=== PATIENT | female | born 1985 | race Caucasian/White ===

== ENCOUNTER → 2020-07-12 02:18 | Outpatient (CLI) | payer OTHER, SELFPAY ==
[2020-07-12 20:23] LABS: SARS-CoV-2 RNA PCR Negative
== END ==
PROVIDERS: PCP Internal Medicine; Visit Provider Internal Medicine Gastroenterology
DX: Z01.812 Encounter for preprocedural laboratory examination (principal); Z20.822 Contact with and (suspected) exposure to COVID-19
CPT/HCPCS: C9803; U0003; U0005

== ENCOUNTER 2020-07-15 01:36 | Day surgery (SDC) | payer OTHER, SELFPAY ==
[2020-07-01 11:17] VITALS: BMI 26.9
[2020-07-15 10:32] VITALS: BP 124/87; PULSE 85; RESP 16; TEMP 36.1; O2SAT 99
[2020-07-15] MEDS: LACTATED RINGERS 1,000 ML 150 ML IV CONT (10:37)
--- NOTE | 2020-07-15 11:24 | WPDANESEPPF ---
Anes - Initial Pre Proc Eval Procedure: Operation Date: 07/15/20 11:30 Proposed Procedures p Colonoscopy - Pranay Doe MD Date/Time: 07/15/20 11:24 Surgeon: Pranay Doe MD Pre Op Diagnosis: melena, constipation Patient Data Age: 34 Gender: F Height: 5 ft 4 in Weight: 69 kg Last Vital Signs Temp 36.1 C L 07/15/20 10:32 Pulse 85 07/15/20 10:32 Resp 16 07/15/20 10:32 BP 124/87 07/15/20 10:32 Pulse Ox 99 07/15/20 10:32 Allergies Allergy/AdvReac Type Severity Reaction Status Date / Time No Known Allergies Allergy Verified 07/15/20 10:29 Home Medications Medication Instructions Recorded Confirmed Type baclofen 10 mg tablet 10 mg PO DAILY 02/15/20 07/01/20 History duloxetine 20 mg capsule,delayed 60 mg PO DAILY cap 02/15/20 07/01/20 History release nortriptyline 10 mg capsule 10 mg PO BID 02/15/20 07/01/20 History verapamil 180 mg tablet,extended 180 mg PO DAILY 02/15/20 07/01/20 History release Patient hx anesthesia problems: none Family hx anesthesia problems: none PMFSH Past Medical History Medical History Anxiety Blood in stool Fibromyalgia Social History Social History Years smoked: 20 Smoking status: Current every day smoker Tobacco type: cigarettes Alcohol intake: current Drinks per week: 7 Substance use type: marijuana Other substance usage details: nightly for sleep Last use: 1 day ago Living arrangements: with family Gender identity (if verbalized by the patient): Female Spiritual care concerns: No Anes - Eval Final PreProcedure Day of Procedure 07/15/20 11:24 Patient weight: overweight Heart: regular rate and rhythm Lungs: clear to auscultation Airway: Mallampati scale class II Neurological: alert and oriented Last oral intake: >/= 8 hours ASA classification: III Emergent: no Anesthetic plan: proceed Anesthesia type and monitoring: general GIVS and standard monitoring Informed Consent: The patient's anesthetic plan and its attendant risks and benefits were discussed with the patient/family/POA. Questions were solicited and answers provided to the satisfaction of the patient/family/POA.
--- NOTE | 2020-07-15 11:31 | PM.HPGS ---
History of Present Illness History of Present Illness Consent: Risks, benefits, and alternatives have been discussed and questions answered. Patient agrees to proceed with procedure. Chief complaint: melena, constipation Narrative: Joseline You is a 34 year old female with cramping abdominal discomfort, post prandial bowel movement and had one episode of rectal bleeding, never had colonoscopy Review of Systems Constitutional: Constitutional: Denies headache(s) and Denies weakness Eyes: Eyes: Denies blurry vision ENT: Reports Normal hearing present, Denies headache(s) and Denies neck pain Cardiovascular: Cardiovascular: Denies chest pain and Denies dyspnea Respiratory: Respiratory: Denies dyspnea Gastrointestinal: Gastrointestinal: Reports no additional gastrointestinal complaints Genitourinary: Genitourinary: Denies dysuria Musculoskeletal: Musculoskeletal: Denies neck pain Integumentary/Breasts: Skin/Breast: Denies dry skin Neurologic: Reports Normal hearing present, Denies headache(s) and Denies weakness Psychiatric: Psychiatric: Denies anxiety Endocrine: Endocrine: Denies change in body appearance Hematologic/Lymphatic: Hematologic/Lymphatic: Denies easy bleeding Allergic/Immunologic: Allergic/Immunologic: Denies urticaria PMFSH Past Medical History Medical History Anxiety Blood in stool Fibromyalgia Social History Social History Years smoked: 20 Smoking status: Current every day smoker Tobacco type: cigarettes Alcohol intake: current Drinks per week: 7 Substance use type: marijuana Other substance usage details: nightly for sleep Last use: 1 day ago Living arrangements: with family Gender identity (if verbalized by the patient): Female Spiritual care concerns: No Meds Home Medications and Allergies Home Medications Medication Instructions Recorded Confirmed Type baclofen 10 mg tablet 10 mg PO DAILY 02/15/20 07/01/20 History duloxetine 20 mg capsule,delayed 60 mg PO DAILY cap 02/15/20 07/01/20 History release nortriptyline 10 mg capsule 10 mg PO BID 02/15/20 07/01/20 History verapamil 180 mg tablet,extended 180 mg PO DAILY 02/15/20 07/01/20 History release Allergies Allergy/AdvReac Type Severity Reaction Status Date / Time No Known Allergies Allergy Verified 07/15/20 10:29 Vital Signs Vital Signs - 24 hr 07/15/20 10:32 Temperature 96.9 F L Pulse Rate 85 Respiratory Rate 16 Blood Pressure 124/87 Pulse Oximetry 99 Exam Const: General: comfortable and no acute distress HENMT: General nose exam: Normal nares present Eyes: General: appearance normal, both eyes and all related structures Neck: Neck: no JVD Resp: Auscultation: clear to auscultation bilaterally Cardio: Rate: regular rate Rhythm: regular rhythm GI: Inspection: non-distended GI Palp: Yes Soft to palpation Skin: General skin exam: normal color Neuro: General: gait normal Speech: normal speech Extrem: General: normal to inspection Psych: Mental Status: mental status grossly normal Assessment and Plan Assessment and plan (1) Blood in stool: Code(s): K92.1 - Melena Status: Acute Assessment and Plan: colonoscopy (2) Abdominal pain: Code(s): R10.9 - Unspecified abdominal pain Status: Acute
[2020-07-15 11:53] VITALS: BP 107/74; PULSE 89; RESP 16; O2SAT 99
[2020-07-15 12:03] VITALS: BP 116/82; PULSE 85; RESP 16; O2SAT 99
[2020-07-15 12:13] VITALS: BP 122/88; PULSE 77; RESP 14; O2SAT 100
== END 2020-07-15 12:21 | disposition home or self-care (01) ==
PROVIDERS: PCP Internal Medicine; Visit Provider Internal Medicine Gastroenterology
PROC: 0DJD8ZZ Inspection of Lower Intestinal Tract, Via Natural or Artificial Opening Endoscopic (ICD-10-PCS; CPT 45378; principal; 2020-07-15 11:30)
DX: K52.9 Noninfective gastroenteritis and colitis, unspecified (principal); M79.7 Fibromyalgia; F41.9 Anxiety disorder, unspecified; F17.210 Nicotine dependence, cigarettes, uncomplicated; F12.90 Cannabis use, unspecified, uncomplicated
CPT/HCPCS: 45380; 88305; C9803; J2704; J7120; U0003; U0005

== ENCOUNTER → 2020-10-14 01:18 | Outpatient (CLI) | payer OTHER, SELFPAY ==
[2020-10-14 17:12] LABS: SARS-CoV-2 RNA PCR Negative
== END ==
PROVIDERS: PCP Internal Medicine; Visit Provider Internal Medicine Gastroenterology
DX: Z01.812 Encounter for preprocedural laboratory examination (principal); Z20.822 Contact with and (suspected) exposure to COVID-19
CPT/HCPCS: C9803; U0003; U0005

== ENCOUNTER 2020-10-17 00:22 | Day surgery (SDC) | payer OTHER, SELFPAY ==
[2020-10-02 12:13] VITALS: BMI 26.4
[2020-10-17 08:52] VITALS: BP 111/77; PULSE 80; RESP 18; TEMP 36.1; O2SAT 99
[2020-10-17] MEDS: LACTATED RINGERS 1,000 ML 150 ML IV CONT (08:55)
--- NOTE | 2020-10-17 09:37 | P.PNAN_ITS ---
Anes - Initial Pre Proc Eval Procedure: Operation Date: 10/17/20 10:00 Proposed Procedures p Esophagogastroduodenoscopy - Pranay Doe MD Date/Time: 10/17/20 09:37 Surgeon: Pranay Doe MD Pre Op Diagnosis: nausea and bloating Patient Data Age: 34 Gender: F Height: 1.63 m Weight: 70 kg Last Vital Signs Temp 96.9 F L 10/17/20 08:52 Pulse 80 10/17/20 08:52 Resp 18 10/17/20 08:52 BP 111/77 10/17/20 08:52 Pulse Ox 99 10/17/20 08:52 Allergies Allergy/AdvReac Type Severity Reaction Status Date / Time No Known Allergies Allergy Verified 10/17/20 08:51 Home Medications Medication Instructions Recorded Confirmed Type baclofen 10 mg tablet 10 mg PO DAILY 02/15/20 10/17/20 History duloxetine 20 mg capsule,delayed 60 mg PO DAILY cap 02/15/20 10/17/20 History release nortriptyline 10 mg capsule 10 mg PO BID 02/15/20 10/17/20 History verapamil 180 mg tablet,extended 180 mg PO DAILY 02/15/20 10/17/20 History release dicyclomine 10 mg capsule 10 mg PO BID PRN #60 cap 07/15/20 10/17/20 Rx Patient hx anesthesia problems: none Family hx anesthesia problems: none PMFSH Past Medical History Medical History Abdominal pain Anxiety Bloating Blood in stool Fibromyalgia Irritable bowel syndrome Tobacco consumption Social History Social History Years smoked: 20 Smoking status: Current every day smoker Tobacco type: cigarettes Alcohol intake: current Drinks per week: 3 Substance use: current Substance use type: marijuana Other substance usage details: almost daily Last use: 1 day ago Living arrangements: with family Gender identity (if verbalized by the patient): Female Spiritual care concerns: No Anes - Eval Final PreProcedure Day of Procedure 10/17/20 09:37 Patient weight: overweight Heart: regular rate and rhythm Lungs: clear to auscultation Airway: Mallampati scale class II Neurological: alert and oriented Last oral intake: >/= 8 hours ASA classification: III Emergent: no Anesthetic plan: proceed Anesthesia type and monitoring: general GIVS and standard monitoring Informed Consent: The patient's anesthetic plan and its attendant risks and benefits were discussed with the patient/family/POA. Questions were solicited and answers provided to the satisfaction of the patient/family/POA.
--- NOTE | 2020-10-17 09:43 | PM.HPGS ---
History of Present Illness History of Present Illness Consent: Risks, benefits, and alternatives have been discussed and questions answered. Patient agrees to proceed with procedure. Chief complaint: nausea and bloating Narrative: Joseline You is a 34 year old female with ibs, bloating and intermittent nausea. Here for EGD. Review of Systems Constitutional: Constitutional: Denies headache(s) and Denies weakness Eyes: Eyes: Denies blurry vision ENT: Reports Normal hearing present, Denies headache(s) and Denies neck pain Cardiovascular: Cardiovascular: Denies chest pain and Denies dyspnea Respiratory: Respiratory: Denies dyspnea Gastrointestinal: Gastrointestinal: Reports no additional gastrointestinal complaints Genitourinary: Genitourinary: Denies dysuria Musculoskeletal: Musculoskeletal: Denies neck pain Integumentary/Breasts: Skin/Breast: Denies dry skin Neurologic: Reports Normal hearing present, Denies headache(s) and Denies weakness Psychiatric: Psychiatric: Denies anxiety Endocrine: Endocrine: Denies change in body appearance Hematologic/Lymphatic: Hematologic/Lymphatic: Denies easy bleeding Allergic/Immunologic: Allergic/Immunologic: Denies urticaria PMFSH Past Medical History Medical History Abdominal pain Anxiety Bloating Blood in stool Fibromyalgia Irritable bowel syndrome Tobacco consumption Social History Social History Years smoked: 20 Smoking status: Current every day smoker Tobacco type: cigarettes Alcohol intake: current Drinks per week: 3 Substance use: current Substance use type: marijuana Other substance usage details: almost daily Last use: 1 day ago Living arrangements: with family Gender identity (if verbalized by the patient): Female Spiritual care concerns: No Meds Home Medications and Allergies Home Medications Medication Instructions Recorded Confirmed Type baclofen 10 mg tablet 10 mg PO DAILY 02/15/20 10/17/20 History duloxetine 20 mg capsule,delayed 60 mg PO DAILY cap 02/15/20 10/17/20 History release nortriptyline 10 mg capsule 10 mg PO BID 02/15/20 10/17/20 History verapamil 180 mg tablet,extended 180 mg PO DAILY 02/15/20 10/17/20 History release dicyclomine 10 mg capsule 10 mg PO BID PRN #60 cap 07/15/20 10/17/20 Rx Allergies Allergy/AdvReac Type Severity Reaction Status Date / Time No Known Allergies Allergy Verified 10/17/20 08:51 Vital Signs Vital Signs - 24 hr 10/17/20 08:52 Temperature 96.9 F L Pulse Rate 80 Respiratory Rate 18 Blood Pressure 111/77 Pulse Oximetry 99 Exam Const: General: comfortable and no acute distress HENMT: General nose exam: Normal nares present Eyes: General: appearance normal, both eyes and all related structures Neck: Neck: no JVD Resp: Auscultation: clear to auscultation bilaterally Cardio: Rate: regular rate Rhythm: regular rhythm GI: Inspection: non-distended GI Palp: Yes Soft to palpation Skin: General skin exam: normal color Neuro: General: gait normal Speech: normal speech Extrem: General: normal to inspection Psych: Mental Status: mental status grossly normal Assessment and Plan Assessment and plan (1) Bloating: Code(s): R14.0 - Abdominal distension (gaseous) Status: Acute Assessment and Plan: egd with bx (2) Irritable bowel syndrome: Code(s): K58.9 - Irritable bowel syndrome without diarrhea Status: Acute Assessment and Plan: on meds as needed (3) Abdominal pain: Code(s): R10.9 - Unspecified abdominal pain Status: Acute
[2020-10-17 10:01] VITALS: BP 95/59; PULSE 74; RESP 17; O2SAT 98
[2020-10-17 10:11] VITALS: BP 100/65; PULSE 71; RESP 22; O2SAT 100
[2020-10-17 10:21] VITALS: BP 110/70; PULSE 73; RESP 26; O2SAT 100
== END 2020-10-17 10:34 | disposition home or self-care (01) ==
PROVIDERS: PCP Internal Medicine; Visit Provider Internal Medicine Gastroenterology
PROC: 0DJ08ZZ Inspection of Upper Intestinal Tract, Via Natural or Artificial Opening Endoscopic (ICD-10-PCS; CPT 43235; principal; 2020-10-17 10:00)
DX: R11.0 Nausea (principal); R14.0 Abdominal distension (gaseous); K58.9 Irritable bowel syndrome, unspecified; F41.9 Anxiety disorder, unspecified; M79.7 Fibromyalgia; F17.210 Nicotine dependence, cigarettes, uncomplicated; F12.90 Cannabis use, unspecified, uncomplicated; R10.9 Unspecified abdominal pain
CPT/HCPCS: 43239; 88305; C9803; J2001; J2704; J7120; U0003; U0005

== ENCOUNTER 2022-04-27 09:41 | Outpatient (CLI) | payer BC, OTHER, SELFPAY ==
[2022-04-27 10:29] LABS: Hematocrit 44.1 % (37.0-47.0); Hemoglobin 14.2 g/dL (12.0-15.0); Mean Corpuscular HGB Conc 32.2 g/dl (32-36); Mean Corpuscular Hemoglobin 29.3 pg (26-34); Mean Corpuscular Volume 91.1 fl (80-100); Mean Platelet Volume 8.8 fl (7.4-10.4); Platelet Count Result 277 k/mm3 (150-375); Red Blood Count 4.84 M/mm3 (4.2-5.4); Red Cell Distribution Width 12.8 % (11.5-14.5); White Blood Count 5.7 K/mm3 (4.5-10.0)
[2022-04-27 10:41] LABS: Alanine Aminotransferase 37 U/L (6-35); Albumin Level 4.6 g/dL (3.5-5.1); Alkaline Phosphatase 54 U/L (38-126); Anion Gap 6 mmol/L (8-16); Aspartate Amino Transferase 40 U/L (14-36); Bilirubin,Total 0.4 mg/dL (0.2-1.3); Blood Urea Nitrogen 9 mg/dL (7-17); CRP 1.9 mg/dL (<1.0); Carbon Dioxide 28 mmol/L (22-30); Chloride 101 mmol/L (98-107); Estimated Glomerular Filt Rate > 60; Glucose 91 mg/dL (65-110); Potassium 4.2 mmol/L (3.4-5.0); Sodium 135 mmol/L (137-145)
[2022-04-27 12:15] LABS: Erythrocyte Sedimentation Rate 11 mm/hr (0-20)
[2022-05-01 13:35] LABS: ANCA Screen Negative (Negative); Myeloperoxidase Ab <1.0 AI (<1.0); Proteinase-3 Ab <1.0 AI (<1.0); S cerevisiae Ab (IgA) 5.8 U (<=20.0); S cerevisiae Ab (IgG) 9.5 U (<=20.0)
[2022-05-04 20:18] LABS: Calprotectin, Stool 23 mcg/g
== END 2022-04-27 09:42 | disposition home or self-care (01) ==
PROVIDERS: PCP Internal Medicine; Visit Provider Nurse Practitioner
DX: K92.1 Melena (principal); R10.9 Unspecified abdominal pain; K52.9 Noninfective gastroenteritis and colitis, unspecified
CPT/HCPCS: 36415; 80053; 83993; 85027; 85652; 86036; 86140; 86671

== ENCOUNTER 2023-04-20 10:53 | Outpatient (CLI) | payer BC, OTHER, SELFPAY ==
--- NOTE | ~2023-04-20 | MMUS_ITS ---
EXAMINATION: MM diagnostic melanie BI w [facility], US breast BI limited HISTORY: Palpable lumps in the upper outer quadrants of the breasts. TECHNIQUE: Craniocaudal, mediolateral, and mediolateral oblique 3-D tomosynthesis images of the wesley ts were performed and synthetic 2-D images were generated. CAD analysis was submitted and interpreted . High resolution limited bilateral breast ultrasound was performed. COMPARISON: None, baseline BREAST PARENCHYMAL COMPOSITION: The breasts are heterogeneously dense, which may obscure small masses . FINDINGS: MAMMOGRAPHIC FINDINGS: No suspicious mass, calcification, or architectural distortion are identified in either breast to sug gest malignancy. No mammographic correlate is identified for the reported palpable abnormality of eit her breast. ULTRASOUND: Right breast: No sonographic correlate is identified for the reported palpable abnormality in the upp er outer quadrant of the right breast. There is a 7 mm x 6 mm oval, circumscribed, parallel, hypoecho ic mass with no posterior features or internal vascularity near the right nipple. Left breast: No suspicious sonographic correlate is identified for the reported areas of palpable con cern in the upper outer quadrant of the left breast. Normal-appearing dense breast tissue is noted. T here is a 6 mm x 3 mm oval, circumscribed, parallel, hypoechoic mass with no posterior features or in ternal vascularity at the 6:00 location, 5 cm from the nipple. IMPRESSION: 1. No specific mammographic or sonographic correlate is identified for the reported palpable abnormal ities of concern in either breast. Further evaluation at this time should be based on clinical assess ment. Continued follow-up physical examination is recommended. 2. Probably benign sonographically detected masses are noted in the right breast near the nipple and in the left breast at the 6:00 location, 5 cm from the nipple. Targeted bilateral breast ultrasound i n six months is recommended. BI-RADS category 3, probably benign findings. Reviewed, dictated and finalized at location A. RN IMPRESSION: 1. No specific mammographic or sonographic correlate is identified for the repo rted palpable abnormalities of concern in either breast. Further evaluation at this time should be based on clinical assessment. Continued follow-up physical examination is recommended. 2. Probably benign sonographically detected masses are noted in the right breas t near the nipple and in the left breast at the 6:00 location, 5 cm from the ni pple. Targeted bilateral breast ultrasound in six months is recommended. BI-RADS category 3, probably benign findings.
== END 2023-04-20 10:54 ==
LOC: MICIMG 10:56
PROVIDERS: PCP Nurse Practitioner; Visit Provider Nurse Practitioner
DX: N63.11 Unspecified lump in the right breast, upper outer quadrant (principal); N63.21 Unspecified lump in the left breast, upper outer quadrant
CPT/HCPCS: 76642; 77062; 77066; G0279

== ENCOUNTER 2023-09-06 09:16 | Outpatient (CLI) | payer BC, OTHER, SELFPAY ==
[2023-09-06 09:47] LABS: Basophils Absolute Auto 0.02 K/mm3 (0.00-0.10); Basophils Percent Auto 0.2 % (0.0-1.0); Eosinophils Absolute Auto 0.02 K/mm3 (0.02-0.50); Eosinophils Percent Auto 0.2 % (1.0-6.0); Hematocrit 44.6 % (35.0-49.0); Hemoglobin 14.5 g/dL (12.0-15.0); Immature Granulocyte Absolute 0.06 K/mm3 (0.00-0.00); Immature Granulocyte Percent A 0.6 % (0.0-0.0); Lymphocytes Absolute Auto 2.92 K/mm3 (1.10-4.50); Lymphocytes Percent Auto 27.4 % (18.0-42.0); Mean Corpuscular HGB Conc 32.5 g/dL (32-36); Mean Corpuscular Hemoglobin 29.4 pg (27.0-31.0); Mean Corpuscular Volume 90.3 fL (78.0-102.0); Mean Platelet Volume 8.7 fl (9.2-11.8); Monocytes Absolute Auto 0.74 K/mm3 (0.10-0.90); Monocytes Percent Auto 6.9 % (2.0-11.0); Neutrophils Absolute Auto 6.89 K/mm3 (1.70-7.20); Neutrophils Percent Auto 64.7 % (50.0-70.0); Platelet Count Result 273 K/mm3 (150-420); Red Blood Count 4.94 M/mm3 (4.20-5.40); Red Cell Distribution Width 12.5 % (11.6-14.4); White Blood Count 10.7 K/mm3 (4.8-10.8)
[2023-09-06 10:22] LABS: Appearance Urine Clear (Clear); Bilirubin Urine Negative (Negative); Blood Urine Negative (Negative); Color Urine Light Yellow (Yellow); Glucose Urine UA Negative (Negative); Ketones Urine Negative (Negative); Leukocyte Esterase Ur Negative (Negative); Nitrate Urine Negative (Negative); Protein Urine Negative (Negative); Specific Grav Ur <= 1.005 (1.010-1.020); Urobilinogen Urine 0.2 mg/dL (0.2-1.0)
[2023-09-06 10:28] LABS: Add Urine Microscopic? NO
[2023-09-06 10:30] LABS: Alanine Aminotransferase 27 U/L (14-59); Albumin Level 4.2 g/dL (3.4-5.0); Alkaline Phosphatase 41 U/L (46-116); Anion Gap 12 mmol/L (4-12); Aspartate Amino Transferase 17 U/L (15-37); Bilirubin,Total 0.6 mg/dL (0.00-1.00); Blood Urea Nitrogen 17 mg/dL (7-18); Calcium 9.1 mg/dL (8.5-10.1); Carbon Dioxide 24 mmol/L (21-32); Chloride 103 mmol/L (98-108); Cholesterol 200 mg/dL (0-200); Estimated Glomerular Filt Rate > 60; Glucose 91 mg/dL (70-99); HDL Direct 58 mg/dL (40-60); LDL Cholesterol Calculated 133 mg/dL (<130); Osmolality Calculated 289 mOsm/kg (285-295); Potassium 4.4 mmol/L (3.5-5.1); Sodium 139 mmol/L (136-145); Thyroid Stimulating Hormone 1.38 uIU/mL (0.36-3.74); Total Protein 7.2 g/dL (6.4-8.2); Triglycerides 47 mg/dL (0-150)
== END 2023-09-06 09:17 | disposition home or self-care (01) ==
PROVIDERS: PCP Internal Medicine; Visit Provider Internal Medicine
DX: Z00.00 Encounter for general adult medical examination without abnormal findings (principal)
CPT/HCPCS: 36415; 80053; 80061; 81003; 84443; 85025

== ENCOUNTER 2023-11-08 14:46 | Outpatient (CLI) | payer BC, OTHER, SELFPAY ==
--- NOTE | ~2023-11-08 | US_ITS ---
US breast BI limited 11/08/2023 15:02 Indication: Follow-up bilateral breast abnormalities. Procedure: High-resolution Limited bilateral breast ultrasound Comparison: Ultrasound dated 04/20/2023 Findings: Right breast: Normal heterogeneous echotexture without focal solid or cystic mass. Left breast: At 6:00, 5 cm from the nipple there is an oval hypoechoic parallel orientation mass with out posterior shadowing or internal vascularity measuring 6 mm, unchanged from prior examination. Impression: 1: Stable likely benign left breast mass at 6:00, 5 cm from the nipple. BI-RADS CATEGORY 3-PROBABLY BENIGN FINDING RECOMMENDATION: Six-month follow-up bilateral mammogram and Limited left breast ultrasound recommende d. Reviewed, dictated and finalized at location B. Impression: 1: Stable likely benign left breast mass at 6:00, 5 cm from the nipple. BI-RADS CATEGORY 3-PROBABLY BENIGN FINDING RECOMMENDATION: Six-month follow-up bilateral mammogram and Limited left breast ultrasound recommended.
== END 2023-11-08 14:47 ==
LOC: MICIMG 14:47
PROVIDERS: PCP Internal Medicine; Visit Provider Surgery
DX: N63.10 Unspecified lump in the right breast, unspecified quadrant (principal); N63.20 Unspecified lump in the left breast, unspecified quadrant; R92.8 Other abnormal and inconclusive findings on diagnostic imaging of breast
CPT/HCPCS: 76642

== ENCOUNTER 2024-07-19 16:56 | Outpatient (CLI) | payer BC, OTHER, SELFPAY ==
--- OUTSIDE RECORDS SUMMARY | 2024-07-19 16:32 | XMS_ITS | Data Portability ---
Author Organization [facility], [address] [place] [address] [place]rology ([place]) Address [address] [address] Care Team Providers Care Mold Filler Name Role Phone TEE ARIAS Primary Care Provider [phone] Assessment Encounter Date Assessment Date Assessment LastModified by Organization Details LastModified Time 03/08/2024 03/08/2024 The patient has spasmodic torticollis. The Botox injections were very helpful. We will therefore continue Botox injections. She is scheduled for April 24. We will also do an injection in the anterior chest. MARIELA [email or web address] Not available 03/08/2024 22:14:05 Plan of Treatment Reminders Order Date Submit Date Provider Last Modified By Organization Details Last Modified Time Details Appointments Procedure 10.PRO 2024 12:40P M Dr. Holly Tolentino Not available Not available Not available Lab None recorded. Referral None recorded. Procedures None recorded. Surgeries None recorded. Imaging None recorded. Medication Orders Botox 100 unit injection 2024 025 [email or web address] [facility], [address], [place], [id number], 05/02/2024 15:50:23 Botox 100 unit injection 2023 024 [email or web address] [facility], [address], [place], [id number], 01/17/2024 12:03:15 triamcino lone acetonide 40 mg/mL suspensio n for injection 2023 024 [email or web address] [facility], [address], [place], [id number], 11/03/2023 16:21:52 triamcino lone acetonide 40 mg/mL suspensio n for injection 2023 024 [email or web address] Not available 11/03/2023 20:19:44 Patient TargetsNo targets recorded. Patient InstructionsNo instructions recorded. Reason for Referral None Reported. Problems Name Problem SNOMED Code Status Onset Date Resolution Date Notes Provider Name and Address Organization Details Recorded Time Spasmodic torticollis 90882516 Active 024 Holly Tolentino MD [address] [place] [address], [phone], [facility] 5 15:49:57 Neck pain 81804362 Active 024 Holly Tolentino MD [address] [place] [address], [phone], [facility] 4 16:25:09 Spasm 91584604 Active 024 Holly Tolentino MD [address] [place] [address], [phone], [facility] 4 16:25:19 Problem Notes None recorded. Procedures Surgical History Date Name Laterality Status Provider Name and Address Organization Details Recorded Time 5 SC Botox Procedure completed Holly Tolentino MD [address] [place] [address], [phone], [facility] 05/02/2024 15:49:46 4 [place] Botox Procedure completed Holly Tolentino MD [address] [place] [address], [phone], [facility] 01/17/2024 12:11:54 4 SC Procedure completed Holly Tolentino MD [address] [place] [address], [phone], [facility] 11/03/2023 16:20:51 4 SC Procedure completed Holly Tolentino MD [address] [facility], [place], [address], [facility] 09/01/2023 16:24:43 Imaging Results None recorded. Procedure Notes None recorded. Medical Equipment None Reported. Medications Name Sig Start Date Stop Date Status Note LastModified by Organization Details LastModified Time celecoxib 200 mg capsule active Not Available Not Available Not Available ketorolac 10 mg tablet active Not Available Not Available No t Available baclofen 10 mg tablet active Not Available Not Available No t Available triamcinolon e acetonide 40 mg/mL suspension for injection Injected per directions 2023 active Not Available Not Available Not Avai lable hydroxyzine HCl 25 mg tablet active Not Available Not Available Not Available norethindron e (contracepti ve) 0.35 mg tablet active Not Available Not Available Not Available dicyclomine 10 mg capsule active Not Available Not Available Not Available nortriptylin e 50 mg capsule active Not Available Not Available Not Available Botox 100 unit injection Inject into the indicated muscles 2024 active Not Available Not Available Not Avai lable duloxetine 60 mg capsule,steve yed release active Not Available Not Available Not Available Vitals Date Recorded Body weight Heart rate Systolic blood pressure Diastolic blood pressure Provider Name and Address Organization Details Last Updated DateTime 03/08/2024 65683.54 g 58 /min 116 mm[Hg] 82 mm[Hg] Alexandra Brewster [facility] 03/08/2024 16:04:35 Social History None recorded. Functional Status None recorded. Mental Status None recorded. Family History Nothing Reported. Medical History No medical history recorded. Gynecological HistoryNo gynecological history recorded. Obstetrics History GPAL:G 0 P 0 0 0 0 Past Encounters Encounter ID Performer Location Encounter Start Date Encounter Closed Date Diagnosis/Indication Diagnosis SNOMED-CT Code Diagnosis ICD10 Code Diagnosis Note [id number] Holly Tolentino MD [facility] Specialty [place]rology ([place]) [address] [place] [address] 09/01/2023 15:57:21 09/06/2023 14:16:25 Neck pain 08239364 M54.2 Spasm 71042084 R25.2 [id number] Holly Tolentino MD [facility] Special[place] ([place]) [place] [address] 11/03/2023 15:50:42 11/07/2023 09:36:33 Neck pain 92053994 M54.2 Spasm 16373424 R25.2 [id number] Holly Tolentino MD [address] [facility] Neurology ([place]) [address] [place] [address] [address] 01/17/2024 10:59:25 01/17/2024 15:57:25 Spasmodic torticollis 35240574 G24.3 [id number] Holly Tolentino MD [facility] Special[place] ([place]) [place] [address] 03/08/2024 15:58:53 03/11/2024 04:48:32 Spasmodic torticollis 56283348 G24.3 [id number] Holly Tolentino MD [address] [facility] Neurology ([place]) [address] [place] [address] [address] 05/02/2024 15:06:18 05/02/2024 17:13:07 Spasmodic torticollis 69068799 G24.3 Health Concerns Section Related Observation LastModified by Organization Detai ls LastModified Time None Recorded Concern Status LastModified by Organization Details LastModified Time None Recorded Advance Directives Directive None Recorded Payers Encounter Date Sequence Insurance Name Policy Number Policy Guy Covered Member ID Guy Member ID Guarantor Name 09/01/2023 1 [id number] Joseline Melm [id number] Joseline Melm 11/03/2023 1 [id number] Joseline Melm [id number] Joseline Melm 11/03/2023 2 UMR [id number] Joseline Melm [id number] Joseline Melm 01/17/2024 1 [id number] Joseline Melm [id number] Joseline Melm 01/17/2024 2 UMR [id number] Joseline Melm [id number] Joseline You 03/08/2024 1 [id number] Joseline You [id number] Joseline You 03/08/2024 2 R [id number] Joseline You [id number] Joseline You 05/02/2024 2 UMR [id number] Joseline You [id number] Joseline You 05/02/2024 2 [place] [id number] Joseline You [id number] Joseline You Notes Date Note Type Note Provider Name and Address Organization Details Recorded Time 11/03/2023 text/html Joseline states that the trigger point injections are becoming less effective. She is having more pulling to the right. Botox injections are medically necessary because they are the only effective treatment for spasmodic torticollis. She had Botox injections in the past which were effective but she stopped doing them because of the discomfort during the injection. Holly Tolentino MD [address] [place] [address], [phone], [facility] 11/30/2023 23:18:40 03/08/2024 text/html The patient is a 38 -year-old female who returns today for followup after her Botox injections. We resumed the patient s Botox injections on January 162023. She states that it has been quite helpful. Her shoulders are a lot looser. Her massage therapist has also noticed that there has been a significant improvement. She had a little bit of weakness but not much. She denies any dysphagia or dysarthria. She states that she has much better range of motion.SKK Holly Tolentino MD [address] [place] [address], [phone], [facility] 03/11/2024 23:15:33 OBGyn Episode No OBEpisode recorded.
[2024-07-19 16:52] LABS: Hematocrit 44.5 % (37.0-47.0); Hemoglobin 14.6 g/dL (12.0-15.0); Mean Corpuscular HGB Conc 32.8 g/dl (32-36); Mean Corpuscular Hemoglobin 29.1 pg (26-34); Mean Corpuscular Volume 88.6 fl (80-100); Mean Platelet Volume 8.9 fl (7.4-10.4); Platelet Count Result 257 k/mm3 (150-375); Red Blood Count 5.02 M/mm3 (4.2-5.4); Red Cell Distribution Width 12.3 % (11.5-14.5); White Blood Count 7.5 K/mm3 (4.5-10.0)
[2024-07-19 17:08] LABS: Alanine Aminotransferase 24 U/L (6-35); Albumin Level 4.9 g/dL (3.5-5.1); Alkaline Phosphatase 55 U/L (38-126); Anion Gap 9 mmol/L (4-12); Aspartate Amino Transferase 46 U/L (14-36); Bilirubin,Total 0.4 mg/dL (0.2-1.3); Blood Urea Nitrogen 13 mg/dL (7-17); CRP < 0.5 mg/dL (<1.0); Calcium 9.6 mg/dL (8.4-10.2); Carbon Dioxide 28 mmol/L (22-30); Chloride 102 mmol/L (98-107); Estimated Glomerular Filt Rate > 60; Glucose 84 mg/dL (65-110); Potassium 3.9 mmol/L (3.4-5.0); Sodium 139 mmol/L (137-145)
[2024-07-19 17:31] LABS: Erythrocyte Sedimentation Rate 3 mm/hr (0-20)
[2024-07-25 16:54] LABS: Calprotectin, Stool <5 mcg/g
== END 2024-07-19 16:57 | disposition home or self-care (01) ==
LOC: ANHLAB 16:57
PROVIDERS: Visit Provider Nurse Practitioner
DX: K92.1 Melena (principal); R10.9 Unspecified abdominal pain; K52.9 Noninfective gastroenteritis and colitis, unspecified; R19.8 Other specified symptoms and signs involving the digestive system and abdomen
CPT/HCPCS: 36415; 80053; 83993; 85027; 85652; 86140

== ENCOUNTER 2024-07-23 08:55 | Outpatient (CLI) | payer BC, OTHER, SELFPAY ==
--- OUTSIDE RECORDS SUMMARY | 2024-07-23 09:10 | XMS_ITS | Data Portability ---
Author Organization [facility] [place] Address [address] [place] [address] [place] [address] Care Team Providers Care Washery Engineer Name Role Phone HUGO TEE Primary Care Provider Assessment Encounter Date Assessment Date Assessment LastModified by Organization Details LastModified Time 09/22/2021 09/22/2021 Annual gynecological exam performed. Patient will come back in a year unless there are new symptoms. Not available 09/21/2021 18:11:26 03/08/2023 03/08/2023 Annual gynecological exam performed. Patient will come back in a year unless there are new symptoms. Not available 03/08/2023 09:28:02 06/11/2024 06/11/2024 Annual gynecological exam performed. Patient will come back in a year unless there are new symptoms. [email or web address] Not available 06/07/2024 12:40:15 Plan of Treatment Reminders Order Date Submit Date Provider Last Modified By Organization Details Last Modified Time Details Appointments None recorded. Lab None recorded. Referral None recorded. Procedures None recorded. Surgeries None recorded. Imaging MAMMO, screening, digital, bilateral 2024 025 [facility], [address], [place], [address], 04:01:38 MAMMO, diagnostic, digital, bilateral - bilateral breast lumps felt in outer quadrants, most prominent on left breast (around 2 oclock) 2022 023 [facility], [address], [place], [address], 4 10:08:16 US, breast, bilateral 2022 023 [facility], [address], [place], [address], 4 05:01:00 Medication Orders norethindro ne (contracept clarissa) 0.35 mg tablet 2024 025 [facility], [address], [place], [place], [id number], 5 10:01:33 norethindro ne (contracept clarissa) 0.35 mg tablet 2022 023 [facility], [address], [id number], 3 17:34:23 Jencycla 0.35 mg tablet 2021 022 [facility], [address], [id number], 2 10:09:57 Debra 0.35 mg tablet 2021 022 [facility], [address], [id number], 2 11:22:37 Patient TargetsNo targets recorded. Patient InstructionsNo instructions recorded. Reason for Referral None Reported. Results Created Date Observation Date Name Description Value Unit Range Abnormal Flag Note LastModifiedBy Organization Detail LastModifiedTime 08/06/1908/05/2020 pap, IG Pap test SEE RESULT S BELOW CASE REPOR T: Cytol ogy Gynec ologi mary Repor t Case: [id number] Autho ernesto manley Provi tonja: Juliana Anderson CNM Colle cted: 08/05 1617 Order ing Locat ion: [place] [facility] Recei sandie: 08/06 0522 First Scree n: Leidy Fajardo Speci men: Scree alberto Pap - Image d, Cervi x STATE MENT OF ADEQU ACY: Satis facto ry for evalu ation Trans forma tion zone compo nent prese nt FINAL DIAGN OSIS: Negat clarissa for Intra epith elial Lesio n or Sharon rodriguez Elect barney fry ava d by Leidy Fajardo on 2020 at 6:19 PM ----- ----- ----- ----- ----- ----- ----- ----- ----- ----- ----- ----- ----- ----- ----- ----- ----- ---- HPV RESUL TS: HPV mRNA E6/E7 : No HPV mRNA Detec sandra NOTE: This high risk HPV mRNA assay detec ts fourt een high- risk HPV types (16, 18, 31, 33, 35, 39, 45, 51, 52, 56, 58, 59, 66, 68) witho ut diffe renti ation . CHART ABLE COMME NT: Note: This speci men was revie wed by a Cytot echno logis t and/o r Patho logis t (as indic ated in this repor t) after evalu ation using the Thinp rep Imagi ng Syste m. CLINI MARY INFOR MATIO N: Menst rual Statu s: LMP (if appli cable ): Clini mary Histo ry/Pr eviou s Pap: Type of Neopl rojas (if appli cable ): Other Histo ry: Hormo irineo (if appli cable ): PAP EDUCA KIT L NOTE: The Pap Test is a scree alberto test with an inher ent false negat clarissa rate. Liqui d-bas e sampl ing may decre ase, but will not elimi shauna, false negat clarissa resul ts. A negat clarissa resul t does not precl ude the prese nce and/o r devel opmen t of disea se, since the prese nce of abnor mal cells in the sampl e depen ds on the locat ion of the lesio n and sampl ing techn ique. Mingo nued regul ar scree alberto is the best metho d of cance r preve ntion . If repor sandra cytol ogic findi ng do not corre late with physi mary and/o r histo rical findi ngs, furth er inves tigat ion is recom dian d, as clini deloris harrison nted. Not Available [facility] (Lab) [address], [place], [address], 08/06/2020 19:21:47 09/23/19 22 09/22/2021 IMAGE GUIDE D PAP AND HPV REGAR DLESS image guided Pap, HPV regardless of Pap result SEE RESULT S BELOW CASE REPOR T: Cytol ogy Gynec ologi mary Repor t Case: [id number] Autho ernesto manley Provi tonja: Alanis Mckeon, VESTA Colle cted: 09/22 1007 Order ing Locat ion: [place] Patho logy Recei sandie: 09/23 0124 First Scree n: Curry Cardoza, CT Rescr een: Abigail Wheeler ret, CT Speci men: Scree alberto Pap - Image d, Cervi x STATE MENT OF ADEQU ACY: Satis facto ry for evalu ation Trans forma tion zone compo nent prese nt FINAL DIAGN OSIS: Negat clarissa for Intra epith elial Lesheike acevedo or Sharon rodriguez (NIL) . Jody fry ava d by Abigail Wheeler ret, CT on 2021 at 6:31 AM ----- ----- ----- ----- ----- ----- ----- ----- ----- ----- ----- ----- ----- ----- ----- ----- ----- ---- HPV RESUL TS: HPV mRNA E6/E7 : No HPV mRNA Detec sandra NOTE: This high risk HPV mRNA assay detec ts fourt een high- risk HPV types (16, 18, 31, 33, 35, 39, 45, 51, 52, 56, 58, 59, 66, 68) witho ut diffe renti ation . COMME NT: Note: This speci men was revie wed by a Cytot echno logis t and/o r Patho logis t (as indic ated in this repor t) after evalu ation using the Thinp rep Imagi ng Syste m. CLINI MARY INFOR MATIO N: Menst rual Statu s: LMP (if appli cable ): Clini mary Histo ry/Pr eviou s Pap: Type of Neopl rojas (if appli cable ): Signi fican t Clini mary Findi ngs: Other Histo ry: Hormo irineo (if appli cable ): PAP EDUCA KIT L NOTE: The Pap Test is a scree alberto test with an inher ent false negat clarissa rate. Liqui d-bas ed sampl ing may decre ase, but will not elimi shauna, false negat clarissa resul ts. A negat clarissa resul t does not precl ude the prese nce and/o r devel opmen t of disea se, since the prese nce of abnor mal cells in the sampl e depen ds on the locat ion of the lesio n and sampl ing techn ique. Mingo nued regul ar scree alberto is the best metho d of cance r preve ntion . If repor sandra cytol ogic findi ng do not corre late with physi mary and/o r histo rical findi ngs, furth er inves tigat ion is recom dian d, as clini deloris warrkhloe nted. Not Available [facility] (Lab) [address], [place], [address], 09/26/2021 07:34:25 03/08/20 23 03/08/2023 IMAGE GUIDE D PAP AND HPV REGAR DLESS image guided Pap, HPV regardless of Pap result SEE RESULT S BELOW CASE REPOR T: Cytol ogy Gynec ologi mary Repor t Case: [id number] Autho rizin g Provi tonja: Alanis Mckeon, VESTA Coles cted: 03/08 1707 Order ing Locat ion: [place] Patho logag Recei sandie: 03/09 0717 First Scree n: Elvie Del Rio ica Speci men: Scree alberto Pap - Image d, Cervi x STATE MENT OF ADEQU ACY: Satis facto ry for evalu ation Trans forma tion zone compo nent prese nt FINAL DIAGN OSIS: Negat clarissa for Intra epith elial Lesio n or Sharon rodriguez (NIL) . Elect demetriusdeanna fry ava d by Elvie Del Rio ica on 03/14 at 11:23 AM ----- ----- ----- ----- ----- ----- ----- ----- ----- ----- ----- ----- ----- ----- ----- ----- ----- ---- HPV RESUL TS: HPV mRNA E6/E7 : No HPV mRNA Detec sandra NOTE: This high risk HPV mRNA assay detec ts fourt een high- risk HPV types (16, 18, 31, 33, 35, 39, 45, 51, 52, 56, 58, 59, 66, 68) witho ut diffe renti ation . COMME NT: This speci men was revie wed by a Cytot echno logis t and/o r Patho logis t (as indic ated in this repor t) after evalu ation using the Thinp rep Imagi ng Syste m. CLINI MARY INFOR MATIO N: Menst rual Statu s: LMP (if appli cable ): Clini mary Histo ry/Pr eviou s Pap: Type of Neopl rojas (if appli cable ): Signi fican t Clini mary Findi ngs: Other Histo ry: Hormo irineo (if appli cable ): PAP EDUCA KIT L NOTE: The Pap Test is a scree alberto test with an inher ent false negat clarissa rate. Liqui d-bas ed sampl ing may decre ase, but will not elimi shauna, false negat clarissa resul ts. A negat clarissa resul t does not precl ude the prese nce and/o r devel opmen t of disea se, since the prese nce of abnor mal cells in the sampl e depen ds on the locat ion of the lesio n and sampl ing techn ique. [place]ingo nued regul ar scree alberto is the best metho d of cance r preve ntion . If repor sandra cytol ogic findi ng do not corre late with physi mary and/o r histo rical findi ngs, furth er inves tigat ion is recom dian d, as clini deloris christy nted. Not Available [facility] (Lab) [address], [place], [address], 03/14/2023 12:27:33 04/21/19 24 04/20/2023 MAMMO , diagn ostic , digit al, bilat eral No observ ation record ed. [facility] [address], [place], [address], 04/25/2023 11:52:57 Result Notes None recorded. Problems Name Problem SNOMED Code Status Onset Date Resolution Date Notes Provider Name and Address Organization Details Recorded Time Clinical finding Completed 201708/05/2020 Maternal care for oth abnlt of cervix, second trimeste r;Practi ce ID: 0001 Soo encarnacion, [facility] 13:57:40 Antenata l screenin g for malforma tion Completed 201708/05/2020 Encounte r for antenata l screenin g for malforma tions;Pr actice ID: 0001 Soo encarnacion [facility] 13:57:29 Gestatio n period, 19 weeks [id number] Completed 201708/05/2020 19 weeks gestatio n of pregnanc y;Practi ce ID: 0001 Soo encarnacion [facility] 13:57:46 Normal pregnanc y in multigra britta [id number] 4106 Completed 201708/05/2020 Encounte r for suprvsn of normal pregnanc y, second trimeste r;Practi ce ID: 0001 Soo encarnacion, [facility] 13:58:10 Antenata l screenin g Completed 201708/05/2020 Encounte r for other antenata l screenin g follow-u p;Practi ce ID: 0001 Soo encarnacion, [facility] 13:57:27 Backache [id number] Completed 201708/05/2020 Dorsalgi a, unspecif ied;Prac heather ID: 0001 Soo encarnacion, [facility] 13:57:30 Gestatio n period, 21 weeks 85900218 Completed 201708/05/2020 21 weeks gestatio n of pregnanc y;Practi ce ID: 0001 Soo encarnacion, [facility] 13:57:48 Gestatio n period, 23 weeks 73612012 Completed 201808/05/2020 23 weeks gestatio n of pregnanc y;Practi ce ID: 0001 Soo encarnacion, [facility] 13:57:49 Gestatio n period, 25 weeks 33909733 Completed 201808/05/2020 25 weeks gestatio n of pregnanc y;Practi ce ID: 0001 Soo encarnacion, [facility] 13:57:51 Pregnanc y, childbir th and puerperi um finding Completed 201808/05/2020 Encntr for suprvsn of normal first pregnanc y, unsp trimeste r;Practi ce ID: 0001 Soo encarnacion, [facility] 13:58:13 Gestatio nal diabetes mellitus 26940550 Completed 201808/05/2020 Gestatio nal diabetes mellitus in pregnanc y, diet controll ed;Pract ice ID: 0001 Soo encarnacion, [facility] 13:58:04 Gestatio n period, 29 weeks 93808790 Completed 201808/05/2020 29 weeks gestatio n of pregnanc y;Practi ce ID: 0001 Soo Jair necarnacion, [facility] 13:57:53 Diet educatio n Completed 201808/05/2020 Dietary counseli ng and surveill ance;Pra ctice ID: 0001 Soo Jair encarnacion, [facility] 13:57:34 Dietary manageme nt surveill ance Completed 201808/05/2020 Dietary counseli ng and surveill ance;Pra ctice ID: 0001 Soo Jair alysha, [facility] 13:57:37 Gestatio n period, 35 weeks [id number] Completed 201808/05/2020 35 weeks gestatio n of pregnanc y;Practi ce ID: 0001 Soo [place] alysha, [facility] 13:57:58 Gestatio n period, 36 weeks 96871631 Completed 201808/05/2020 36 weeks gestatio n of pregnanc y;Practi ce ID: 0001 Soo encarnacion, [facility] 13:57:59 Gestatio n period, 37 weeks 21316497 Completed 201808/05/2020 37 weeks gestatio n of pregnanc y;Practi ce ID: 0001 Soo encarnacion, [facility] 13:58:01 Gestatio n period, 38 weeks 03773768 Completed 201808/05/2020 38 weeks gestatio n of pregnanc y;Practi ce ID: 0001 Soo encarnacion [facility] 13:58:02 Gestatio nal diabetes mellitus in [facility] [id number] 660068 Completed 201808/05/2020 Gestatnl diab in [facility] , ctrl by oral hypoglyc emic drugs;Pr actice ID: 0001 Soo encarnacion [facility] 13:58:05 Fourth degree perineal lacerati on [id number] Completed 201808/05/2020 Fourth degree perineal lacerati on during delivery ;Practic e ID: 0001 Soo encarnacion [facility] 13:57:41 Single live [id number] Completed 201808/05/2020 Single live ;Pr actice ID: 0001 Soo encarnacion [facility] 13:58:18 Gestatio n period, 39 weeks 77832558 Completed 201808/05/2020 39 weeks gestatio n of pregnanc y;Practi ce ID: 0001 Soo encarnacion [facility] 13:58:03 Uses combined oral contrace ption [id number] Completed 201808/05/2020 Encounte r for initial prescrip tion of contrace ptive pills;Pr actice ID: 0001 Soo encarnacion [facility] 13:57:32 Lochia finding Completed 201808/05/2020 Encounte r for routine postpart um follow-u p;Practi ce ID: 0001 Soo encarnacion, [facility] 13:58:09 Past pregnanc y history of gestatio nal diabetes mellitus 125604014 Completed 201808/05/2020 Personal history of gestatio nal diabetes ;Practic e ID: 0001 Soo encarnacion [facility] 13:58:[address] Concept Completed 201808/05/2020 Encntr for imaging technician exam (general ) (routine ) w/o abn findings ;Practic e ID: 0001 Soo encarnacion [facility] 13:58:22 Gestatio n period, 34 weeks [id number] Completed 201808/05/2020 34 weeks gestatio n of pregnanc y;Practi ce ID: 0001 Soo Adam [facility] 13:57:57 Gestatio n period, 32 weeks [id number] Completed 201808/05/2020 32 weeks gestatio n of pregnanc y;Practi ce ID: 0001 Soo encarnacion, [facility] 13:57:54 Gestatio n period, 33 weeks 75596511 Completed 201808/05/2020 33 weeks gestatio n of pregnanc y;Practi ce ID: 0001 Soo encarnacion [facility] 13:57:55 Pregnanc y detectio n examinat ion Completed 201708/05/2020 Encounte r for pregnanc y test, result positive ;Practic e ID: 0001 Soo encarnacion [facility] 13:58:11 Hemorrha gic complica tion of pregnanc y [id number] Completed 201708/05/2020 Other hemorrha ge in early pregnanc y;Practi ce ID: 0001 Soo encarnacion, [facility] 13:58:06 Uterine size for dates discrepa ncy Completed 201708/05/2020 Uterine size-alberto e discrepa ncy, first trimeste r;Practi ce ID: 0001 Soo encarnacion, [facility] 13:58:24 Gestatio n less than 9 weeks [id number] Completed 201708/05/2020 Less than 8 weeks gestatio n of pregnanc y;Practi ce ID: 0001 Soo Adam alysha, [facility] 13:57:42 Pregnanc y, childbir th and puerperi um finding Completed 201708/05/2020 Encntr for suprvsn of normal first preg, first trimeste r;Practi ce ID: 0001 Soo Adam alysha, [facility] 13:58:14 Gestatio n period, 15 weeks [id number] Completed 201708/05/2020 15 weeks gestatio n of pregnanc y;Practi ce ID: 0001 Soo encarnacion, [facility] 13:57:43 Gestatio n period, 16 weeks [id number] Completed 201708/05/2020 16 weeks gestatio n of pregnanc y;Practi ce ID: 0001 Soo encarnacion, [facility] 13:57:45 Educatio n Completed 201608/05/2020 Encounte r for other general counseli ng and advice on contrace ption;Re corded Elsewher e: No Locat ion: [facility] S ource: EHR Infusion Therapy Nurse zhen: N Practi ce ID: 0001 Bahman lable Time: 09:45:00 AM Soo Adam alysha, [facility] 13:57:38 Rubella screenin g status [id number] Completed 201708/05/2020 Encounte r for antenata l screenin g, unspecif ied;Prem rded Elsewher e: No Locat ion: [facility] S ource: EHR Infusion Therapy Nurse zhen: N Estelita ce ID: 0001 Bahman lable Time: 10:30:00 AM Soo encarnacion [facility] 13:58:17 Pregnanc y, childbir th and puerperi um finding Completed 201708/05/2020 Encntr for suprvsn of normal first preg, second trimeste r;Record ed Elsewher e: No Locat ion: [facility] S ource: EHR Infusion Therapy Nurse zhen: N Estelita ce ID: 0001 Bahman lable Time: 10:30:00 AM Soo encarnacion [facility] 13:58:[address] Concept Completed 201608/05/2020 Encntr for general adult medical exam w/o abnormal findings ;Recorde d Elsewher e: No Locat ion: [facility] S ource: EHR Infusion Therapy Nurse zhen: N Estelita ce ID: 0001 Bahman lable Time: 09:45:00 AM Soo encarnacion [facility] 13:58:21 Problem Notes None recorded. Procedures Surgical History Date Name Laterality Status Provider Name and Address Organization Details Recorded Time 04/20/19 24 Date of Last Mammogram completed [facility] 06/07/2024 12:45:34 03/08/20 23 Date of Last Pap Smear completed [facility] 06/07/2024 12:44:45 04/18/[address] [facility] Jair [facility] 08/05/2020 14:53:41 Imaging Results Imaging Date Name Status LastModified by Organiz ation Details LastModified Time 04/20/2023 MAMMO, diagnostic, digital, bilateral completed [facility] [address], [place], [address], 04/25/2023 11:52:57 Procedure Notes None recorded. Medical Equipment None Reported. Allergies No known drug allergies Medications Name Sig Start Date Stop Date Status Note LastModified by Organization Details LastModified Time celecoxib 200 mg capsule 06/07 completed Not Available Not Available Not Available metformin 500 mg tablet take 1 tablet by oral route every day with evening meal 09/18 completed Prescrib ed Elsewher e: No Locat ion: [facility] odify By: [email or web address] Encount er DateTime : 06/23/19 08:30:00 AM Not Available Not Available Not Available azithromy rakesh 250 mg tablet 09/22 completed Not Available Not Available Not Available verapamil ER (SR) 180 mg tablet,ex tended release 09/22 completed Not Available Not Available Not Available ketorolac 10 mg tablet take 1 tablet by oral route every 6 hours as needed for up to 5 days total use 06/11 completed Not Available Not Available Not Available baclofen 10 mg tablet active Not Available Not Available Not Available nortripty line 10 mg capsule take 1 capsule by oral route every day at bedtime 09/22 completed Not Available Not Available Not Available hydroxyzi ne HCl 25 mg tablet 06/11 completed Not Available Not Available Not Available norethind zaid (contrace ptive) 0.35 mg tablet TAKE ONE TABLET BY MOUTH DAILY 2024 active Not Available Not Available Not Avai lable [place] 5 mg-325 mg tablet take 1 tablet by oral route every 4 hours as needed for pain 08/05 completed Prescrib ed Elsewher e: No Locat ion: [facility] odify By: haim [email or web address] DateTime : 09/02/19 11:34:08 AM Not Available Not Available Not Available dicyclomi ne 10 mg capsule active Not Available Not Available Not Available nortripty line 50 mg capsule active Not Available Not Available Not Available amoxicill in 875 mg-potass ium clavulana te 125 mg tablet TAKE 1 TABLET BY MOUTH TWICE A DAY FOR 10 DAYS 03/08 completed Not Available Not Available Not Available cyclobenz aprine 5 mg tablet take 1 tablet by oral route 3 times every day 08/05 completed Prescrib ed Elsewher e: Yes Loca tion: [facility] odify By: grecia Godinezte r DateTime : 03/24/20 17 09:45:00 AM Not Available Not Available Not Available duloxetin e 20 mg capsule,d elayed release take 1 capsule by oral route 2 times every day 02/12 completed Prescrib ed Elsewher e: Yes Loca tion: [facility] odify By: [email or web address] Encounte r DateTime : 03/24/20 17 09:45:00 AM Not Available Not Available Not Available duloxetin e 30 mg capsule,d elayed release take 1 capsule by oral route every day 08/05 completed Prescrib ed Elsewher e: Yes Loca tion: [facility] odify By: [email or web address] Encount er DateTime : 09/19/19 19 08:30:00 AM Not Available Not Available Not Available duloxetin e 60 mg capsule,d elayed release active Not Available Not Available Not Available Fora [id number]-S 10-D20 strips-la ncets 30 gauge combo pack checking BS QID fasting and 1 hr after each meal 09/18 completed Prescrib ed Elsewher e: No Locat ion: [facility] odify By: [email or web address] Encount er DateTime : 06/12/19 19 09:13:58 AM Not Available Not Available Not Available 28 mg-800 mcg tablet 08/05 completed Prescrib ed Elsewher e: Yes Loca tion: [facility] odify By: [email or web address] Encount er DateTime : 04/14/20 18 04:00:00 PM Not Available Not Available Not Available Isibloom 0.15 mg-0.03 mg tablet TAKE ONE TABLET BY MOUTH DAILY 09/22 completed Not Available Not Available Not Available Vitals Date Recorded Body height Body mass index (BMI) Body weight Systolic blood pressure Diastolic blood pressure Provider Name and Address Organization Details Last Updated DateTime 08/14/2020 172.72 cm 24 kg/m2 37787.59 g 120 mm[Hg] 80 mm[Hg] Abigail Dey [facility] 1 16:17:59 Date Recorded Body height Body mass index (BMI) Body weight Systolic blood pressure Diastolic blood pressure Provider Name and Address Organization Details Last Updated DateTime 09/22/2021 162.56 cm 26 kg/m2 37572.88 g 122 mm[Hg] 89 mm[Hg] Lillian [facility] 2 10:25:52 Date Recorded Body height Body mass index (BMI) Body weight Systolic blood pressure Diastolic blood pressure Provider Name and Address Organization Details Last Updated DateTime 12/23/2021 162.56 cm 25.8 kg/m2 07737.29 g 122 mm[Hg] 81 mm[Hg] Quin Gallo [facility] 2 09:49:58 Date Recorded Body weight Systolic blood pressure Diastolic blood pressure Provider Name and Address Organization Details Last Updated DateTime 03/08/2023 99088.75 g 131 mm[Hg] 80 mm[Hg] Lillian Santana [facility] 03/08/2023 17:11:49 Date Recorded Body height Body mass index (BMI) Body weight Systolic blood pressure Diastolic blood pressure Provider Name and Address Organization Details Last Updated DateTime 06/11/2024 162.56 cm 26.6 kg/m2 22935.1 g 120 mm[Hg] 84 mm[Hg] Nu Milligan [facility] 5 09:32:35 Social History Question Answer Notes LastModified by Organizat ion Details LastModified Time Tobacco Smoking Status Former Smoker Lillian Santana [facility] 03/08/2023 17:16:42 What Is Your Level Of Alcohol Consumption? Occasional Information not available 09/22/2021 Are You Blind Or Do You Have Difficulty Seeing? No Information not available 09/22/2021 What Is Your Level Of Caffeine Consumption? Moderate Information not available 03/08/2023 Are You Deaf Or Do You Have Serious Difficulty Hearing? No Information not available 09/22/2021 What Type Of Diet Are You Following? REGULAR Information not available 09/22/2021 Which Illicit Or Recreational Drugs Have You Used? Medical Marijuana Information not available 03/08/2023 When Did You Quit Smoking? 6-10yearssince lastcigarette Information not available 03/08/2023 Do You Use Any Illicit Or Recreational Drugs? Yes Information not available 03/08/2023 Sex: Unknown Functional Status Question Answer Note LastModified by Organizat ion Details LastModified Time Do you have difficulty walking or climbing stairs? No Information not available 09/22/2021 Are you able to walk? YESWOREST Information not available 09/22/2021 Are you able to care for yourself? Yes Information not available 09/22/2021 Do you have difficulty dressing or bathing? No Information not available 09/22/2021 What is your exercise level? Occasional Information not available 09/22/2021 Mental Status None recorded. Family History Relationship Description Onset Age of this Age Resolved Age Notes LastModified by Organization Details LastModified Time Paternal Grandfather Carcinoma of prostate [email or web address] Not available 2020 14:52:54 Paternal Grandfather Malignant tumor of colon [email or web address] Not available 2020 14:53:07 Paternal Uncle Malignant tumor of lung [email or web address] Not available 2020 14:53:15 Medical History Condition Response Allergies (Food, seasonal, environmental ) N Other N Breast Cancer N Drug/Latex Allergies/Reactions N Blood Transfusion N Dermatologic Disorders N Lung Disease N Defects or Inherited Disease N Breast Problem N Gestational Diabetes N Hematologic disorders N Anesthesia Complications N History of STI N Deep Vein Thrombosis N Polycystic ovary syndrome N Anxiety Disorder N Autoimmune disease N Arthritis N Infertility N Polyps N Acid Reflux (GERD) N History of abnormal pap N Cancer N Stroke N Varicosities N Neurologic/Epilepsy N Endometriosis N High Cholesterol N Headaches Y Fibromyalgia Y Kidney Disease N Heart Problems N Kidney or Bladder Problems N Thyroid Problems N GI Problems N Eating Disorder N Anemia N Art (IVF or FET) N Psychiatric Illness N Ovarian Cancer N Diabetes N Pulmonary (TB, Asthma) N Hepatitis/Liver Disease N No Past Medical History N Eczema N Urinary Tract Infection N Abuse/Domestic Violence N Asthma N Trauma/Violence N Depression/ depression N Heart Disease N Pre-Eclampsia N Hypertension N Osteoporosis N Thrombophilias N Gynecological History Statement/Question Response Abnormal Pap N Flow Moderate Date of Last Mammogram 04/20/2023 Date of LMP 09/04/2021 STIs/STDs N HPV Vaccine N Current Control Method BCPs Sexually Active? Y Menses Monthly N Age of first menstrual cycle 11 Date of Last Pap Smear 03/08/2023 Sexual Problems? N LMP Approximate Obstetrics History GPAL:G 1 P 1 0 0 1 Type Value Full Term 1 Living 1 Total 1 Past Encounters Encounter ID Performer Location Encounter Start Date Encounter Closed Date Diagnosis/Indication Diagnosis SNOMED-CT Code Diagnosis ICD10 Code Diagnosis Note [id number] Juliana Thurmaned [place] [address] [address] 08/05/2020 15:59:19 08/05/2020 17:36:46 Gynecologic examination 70668578 Z01.419 Take Calcium with Vitamin D 1200mg daily if not receiving in daily diet. It is strongly advised to have an annual flu shot and up can obtain at most pharmacies . If you have not had a TDap shot in the last 10 years you should obtain one as well. Discussed with patient & provided with informatio n regarding Gardisil vaccine to prevent the 4 strains for HPV that cause cervical cancer if under age 26. Encourage safe sexual practices, to use condoms and limit partners if not already in a monogamous relationsh ip. Do monthly self breast exams. Have mammogram yearly or every other year depending on family history. BRCA testing is now available for patients with strong genetic history of female cancer. If interested contact the office. Engage in daily exercise of low impact aerobic exercise 45-60 minutes 4-5 times weekly. Avoid tobacco and illicit drugs as well as using moderation with alcohol intake less than 1-2 8 oz beverages daily. This lifestyle behavior pattern will lead to less health conditions and longer life span. If BMI greater than 25 weight watchers or dietary consult advised. Consult to be scheduled with Dr Hamilton for evaluation of short/thin perineum and rectovagin al septum. Patient received above instructio ns, and questions have been answered. If you have any questions please call or respond to this email. Patient was made aware of the patient portal and may obtain a paper copy of today's plan if desired. [id number] Garrison Hamilton MD [place] [facility] [address],[place] [address] 08/14/2020 15:47:43 08/14/2020 22:29:00 Finding of color of vaginal discharge 587344882 N89.8 There does not appear to be a fistula between the rectum and the vagina. we agreed to a trial of tampon use for 1 week. She will examine the tampon for leakage of stool on the tampon. She will contact us if this persists and we will make arrangemen ts for her to have her evaluation for rectovagin al fistula. [id number] ASHANTI Duran [facility] [address] [address] 09/22/2021 10:02:22 09/23/2021 17:27:56 Contraception care management 419008028 Z30.9 Gynecologi c examination 01936102 Z01.419 Z11.51 Take Calcium with Vitamin D 1200mg daily if not receiving in daily diet. It is strongly advised to have an annual flu shot and up can obtain at most pharmacies . If you have not had a TDap shot in the last 10 years you should obtain one as well. Discussed with patient & provided with informatio n regarding Gardisil vaccine to prevent the 4 strains for HPV that cause cervical cancer if under age 26. Encourage safe sexual practices, to use condoms and limit partners if not already in a monogamous relationsh ip. Do monthly self breast exams. Have mammogram yearly or every other year depending on family history. BRCA testing is now available for patients with strong genetic history of female cancer. If interested contact the office. Engage in daily exercise of low impact aerobic exercise 45-60 minutes 4-5 times weekly. Avoid tobacco and illicit drugs as well as using moderation with alcohol intake less than 1-2 8 oz beverages daily. This lifestyle behavior pattern will lead to less health conditions and longer life span. If BMI greater than 25 weight watchers or dietary consult advised. Patient received above instructio ns, and questions have been answered. If you have any questions please call or respond to this email. Patient was made aware of the patient portal and may obtain a paper copy of today's plan if desired. WWEUsing combined OCP for control. She is an occasional tobacco smoker and has a hx of migraine with aura. We discussed she is not a candidate for estrogen containing control. All progestin only methods discussed. She denies hx of DVT/PE, cancer, liver disease, or stroke/MID iscussed all control options in great detail. Pt would like to start POP. She is aware of the risks and benefits. She has contraindi cations to use of OCP or other estrogen containing hormonal therapy. Pt will start her pills on the first tuesday following the start of her period. She is aware it is not effective for control the first month. She is also aware of the importance of taking at the same time every day. Encouraged use of condoms as the pill does not protect against STD's. Will return in 3 months for med check. Consent was read and signed. Pt verbalized understand ing.Hx of abnormal pap smear around 10 years ago, requiring LEEP procedure. All normal sinceLast pap 2020 normal, HR HPV (-)Pap done todaySTI testing declinedNo family hx of breast or ovarian cancerRTC in 3 months for med check [id number] ASHANTI Duran [place] [facility] [address],[place] [address] 12/23/2021 09:28:01 12/23/2021 10:14:39 Contraception care management [id number] Z30.9 Patient is here today for a medicaton check of control. She voices goals of therapy have been met with use of this therapy. She denies neg side effects. She is eating, drinking, sleeping well; moods are stable & periods are well regulated. Wishes to continue this method of BC. Appropriat e to continue this medication . Some acne with POP at first, getting better. Would like to keep with this pill for now Time spent in visit is a total of 15 mins with at least 50% of visit consisting of counseling and review of plan of care. [id number] ASHANTI Duran [facility] [address],[place] [address] 03/08/2023 17:00:56 03/09/2023 09:50:06 Gynecologic examination 58545322 Z01.419 Z11.51 WWEB - POPrefills sent x 12 monthsr/b/ a reviewedpa p updatedSTI testing declineddi agnostic melanie w/ u/s orderedenc ouraged annual exam with PCPRTC in 1 yr or sooner if needed Take Calcium with Vitamin D daily if not receiving in daily diet.It is strongly advised to have an annual flu shot and up can obtain at most pharmacies . If you have not had a TDap shot in the last 10 years you should obtain one as well. Discussed with patient & provided with informatio n regarding Gardisil vaccine to prevent the 4 strains for HPV that cause cervical cancer if under age 26. Encourage safe sexual practices, to use condoms and limit partners if not already in a monogamous relationsh ip.Do monthly self breast exams. Have mammogram yearly or every other year depending on family history. BRCA testing is now available for patients with strong genetic history of female cancer. If interested contact the office. Engage in daily exercise of low impact aerobic exercise 45-60 minutes 4-5 times weekly. Avoid tobacco and illicit drugs as well as using moderation with alcohol intake less than 1-2 8 oz beverages daily. This lifestyle behavior pattern will lead to less health conditions and longer life span. If BMI greater than 25 dietary consult advised. Patient received above instructio ns, and questions have been answered. If you have any questions please call or respond to this email.Cristal ent was made aware of the patient portal and may obtain a paper copy of today's plan if desired. Breast lump [id number] N63 .0 [facility] ion care management [id number] Z30.9 [id number] VU LÓPEZ NP [place] [address] [address] 06/11/2024 09:23:09 06/11/2024 10:12:05 Gynecologic examination 49708188 Z01.419 Annual gynecologi mary exam performed. Patient will come back in a year unless there are new symptoms. Suggest Calcium with Vitamin D if not eating in diet. Patient advised to get annual flu shot. Recommend yearly physicals and perform monthly breast exams. Genetic testing is available for patients with family history of cancer. Engage in safe sexual practices, use condoms. Encouraged to have daily exercise. Avoid tobacco and illicit drugs, moderation of alcohol. If BMI greater than 25 dietary consult advised. If you have any questions please call or email. mammogram- order given, pt to schedule colon cancer screening - due at age 43 DEXA scan- n/a Pap smear- UTD (2022- WNL), will repeat in 2025 per ASCCP guidelines laboratory evaluation - PCP STI testing - declined Contracept ion care management 580704993 Z30.9 Happy with BC pills. Risks/bene fits reviewed.R efills sent x one year. Screening mammography 24 113800 Z12.31 Health Concerns Section Related Observation LastModified by Organization Detai ls LastModified Time None Recorded Concern Status LastModified by Organization Details LastModified Time None Recorded Advance Directives Directive None Recorded Payers Encounter Date Sequence Insurance Name Policy Number Policy Guy Covered Member ID Guy Member ID Guarantor Name 08/14/2020 1 [facility] (PPO) [id number] Joseline Melm [id number] Joseline Melm 08/14/2020 2 [facility] (PPO) [id number] Andreas Melm [id number] Joseline Melm 09/22/2021 2 [facility] [id number] Andreas Melm [id number] Joseline Melm 09/22/2021 1 [place] [id number] Joseline Melm [id number] Joseline Melm 12/23/2021 2 [facility] (PPO) [id number] Andreas Melm [id number] Joseline Melm 12/23/2021 1 [place] [id number] Joseline Melm [id number] Joseline Melm 03/08/2023 1 [place] [employer] [place] [id number] Joseline Melm [id number] Joseline Melm 03/08/2023 2 [employer] [id number] Andreas D Melm [id number] Joseline Melm 06/11/2024 1 [id number] Joseline Melm [id number] Joseline Melm 06/11/2024 2 [facility] [id number] Andreas You [id number] Joseline You Notes Date Note Type Note Provider Name and Address Organization Details Recorded Time 08/14/2020 text/html this patient is a 34-year-old female who presents for possible stool from the vagina. patient lesion she wipes she is to use stool from the vagina. She denies any foul-smelling vaginal discharge. She denies any pain with intercourse, abnormal vaginal bleeding. She had a 4th degree laceration. She denies any incontinence of stool or Flatus. Garrison Hamilton MD [address], [place], [address], [facility] 08/14/2020 17:58:10 09/22/2021 text/html Annual GYNReport ed bypatient.Menstrual cycle:Normal menses Urinary symptoms:No hematuria; No incontinence Vulva:No genital lesion Vagina:Normal vaginal discharge Breast:No breast pain; No breast lump; No nipple discharge Current Contraception:Oral contraceptives Sexual complaints:No sexual complaints; No pain during intercourse; Normal libido Menopausal Symptoms:No menopausal symptoms; Normal vaginal lubrication Psychological symptoms:No depression; No anxiety; No PMDD Preventive measures:Encourage self breast examination; Encourage regular exercise; Encourage no tobacco use; Encourage regular mammograms starting age 40 ASHANTI Duran [address], [place], [address], [facility] 09/22/2021 11:22:13 12/23/2021 text/html [facility] (tobacco smoker and migraine with aura hx)Doing well with POP, has noted some acneLight monthly spotting ASHANTI Duran [address], [place], [address], [facility] 12/23/2021 10:08:26 03/08/2023 text/html Annual GYNReport ed bypatient.Menstrual cycle:Normal menses Urinary symptoms:No hematuria; No incontinence Vulva:No genital lesion Vagina:Normal vaginal discharge Breast:No breast pain; No breast lump; No nipple discharge Current Contraception:Satisf ied with current contraception; Oral contraceptives Sexual complaints:No sexual complaints; No pain during intercourse; Normal libido Menopausal Symptoms:No menopausal symptoms; Normal vaginal lubrication Psychological symptoms:No depression; No anxiety; No PMDD Preventive measures:Encourage self breast examination; Encourage regular exercise; Encourage no tobacco use; Encourage regular mammograms starting age 40 ASHANTI Duran [address], [place], [address], [facility] 03/09/2023 09:42:51 06/11/2024 text/html Annual GYNReport ed bypatient.Menstrual cycle:Occasional spotting with POP Urinary symptoms:No hematuria; No incontinence Vulva:No genital lesion Vagina:Normal vaginal discharge Breast:No breast pain; No breast lump; No nipple discharge Current Contraception:Satisf ied with current contraception; Oral contraceptives Sexual complaints:No sexual complaints; No pain during intercourse; Normal libido Menopausal Symptoms:No menopausal symptoms; Normal vaginal lubrication Psychological symptoms:No depression; No anxiety; No PMDD Preventive measures:Encourage self breast examination; Encourage regular exercise; Encourage no tobacco use; Encourage regular mammograms starting age 40 Patient presents for annual well woman exam. Patient denies concerns today.Patient states that she had her f/u ultrasound for BIRADS 3 in October 2023 at [facility] per pt. Denies breast concerns today. VU LÓPEZ NP [address], [place], [address], [facility] 06/11/2024 10:03:54 OBGyn Episode Ob Episode Information Episode Created Date Number of Fetuses Patient Bloodtype Patient rh Status Prepregnancy Weight lbs Domestic Partner Domestic Partner Phone Father Name Auto Body Man Status 08/06/19 21 1 CLOSED Fetus Data First Name Last Name Admitted to NICU Weight (g) Sex Living Outcome Pediatric Complications Fetus ID Race Codes Race Delivery Type 3203.26 [id number] Vaginal Delivery Wyatt Calculation Initial Wyatt Date Initial Exam Date Initial Exam Provider Initial Ultrasound Date Last Menstrual Period Date Ultra Sound Weeks Gestation 0 Eighteen To Twenty Week Wyatt Update Ultra Sound Date Fundal Height At Umbil Quickening Date Ultra Sound Latest Weeks Gestation Final Wyatt Confirmed By Final Wyatt Confirmed Date Final Wyatt Date Ultra Sound Latest Days Gestation 0 0 Menstrual History Last Menstrual Date Menses Monthly On Bcp Conception Prior Menses Frequency Hcg Plus Date Menarche Onset Age Delivery Information Delivery Date Delivery Type Labor Anesthesia Weeks Gestation Incision Type Labor Labor Length Hrs Delivered By Post Complications Tubal Sterilization Discharge Date Comments 9 39 Discharge Information Feeding Method Contraceptive Method Maternal HG B and HCT Levels
--- OUTSIDE RECORDS SUMMARY | 2024-07-23 09:10 | XMS_ITS | Data Portability ---
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 Name Role Phone TEE ARIAS Primary Care Provider Assessment Encounter Date Assessment [...] Orders Botox 100 unit injection 2024 025 [email or web address] [facility], [address] [place], [id number], 05/02/2024 15:50:23 Botox 100 unit injection 2023 024 [email or web address] [facility], [address] [place], [place], [id number], 01/17/2024 12:03:15 triamcino lone acetonide 40 mg/mL suspensio n for injection 2023 024 [email or web address] [facility], [address] [place], [place], [id number], 11/03/2023 16:21:52 triamcino lone acetonide 40 mg/mL suspensio n for injection 2023 024 [email or web address] Not available 11/03/2023 20:19:44 Patient TargetsNo targets recorded. Patient InstructionsNo instructions recorded. Reason for Referral None Reported. 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 Procedures Surgical History Date Name Laterality Status Provider Name and Address Organization Details Recorded Time 5 SC Botox Procedure completed Holly Tolentino MD [address] [place] [address], [address], [facility] 05/02/2024 15:49:46 4 SC Botox Procedure completed Holly Tolentino MD [address] [place] [address], [address], [facility] 01/17/2024 12:11:54 4 SC Procedure completed Holly Tolentino MD [address] [place] [address], [phone], [facility] 11/03/2023 16:20:51 4 SC Procedure completed Holly Tolentino MD [address] [facility], [place], [address], [facility] 09/01/2023 16:24:43 Imaging Results None recorded. Procedure [...] Address Organization Details Last Updated DateTime 03/08/2024 75114.54 g 58 /min 116 mm[Hg] 82 mm[Hg] Alexandra Brewster [facility] 03/08/2024 16:04:35 Social History None recorded. Functional Status None recorded. Mental Status None recorded. Family History Nothing Reported. Medical History No medical history recorded. Gynecological HistoryNo gynecological history recorded. Obstetrics History GPAL:G 0 P 0 0 0 0 Past Encounters Encounter ID Performer Location Encounter Start Date Encounter Closed Date Diagnosis/Indication Diagnosis SNOMED-CT Code Diagnosis ICD10 Code Diagnosis Note [id number] Holly Tolentino MD [facility] Specialty [place]rology ([place]) [address] [place] [address] 09/01/2023 15:57:21 09/06/2023 14:16:25 Neck pain 62487671 M54.2 Spasm 65842322 R25.2 [id number] Holly Tolentino MD [facility] Specialty [place]rology ([place]) [place] [address] 11/03/2023 15:50:42 11/07/2023 09:36:33 Neck pain 17151694 M54.2 Spasm 42275833 R25.2 [id number] Holly Tolentino MD [address] [facility] Neurology ([place]) [address] [place] [address] [address] 01/17/2024 10:59:25 01/17/2024 15:57:25 Spasmodic torticollis 98285692 G24.3 [id number] Holly Tolentino MD [facility] Specialty [place]rology ([place]) [place] [address] 03/08/2024 15:58:53 03/11/2024 04:48:32 Spasmodic torticollis 27515932 G24.3 [id number] Holly Tolentino MD [address] [facility] Neurology ([place]) [address] [place] [address] [address] 05/02/2024 15:06:18 05/02/2024 17:13:07 Spasmodic torticollis 27664323 G24.3 Health Concerns Section Related Observation LastModified by Organization Detai ls LastModified Time None Recorded Concern Status LastModified by Organization Details LastModified Time None Recorded Advance Directives Directive None Recorded Payers Encounter Date Sequence Insurance Name Policy Number Policy Guy Covered Member ID Guy Member ID Guarantor Name 09/01/2023 1 [place] [id number] Joseline Melm [id number] Joseline Melm 11/03/2023 1 [place] [id number] Joseline Melm [id number] Joseline Melm 11/03/2023 2 U[employer] [id number] Joseline Melm [id number] Ojseline Melm 01/17/2024 1 [place] [id number] Joseline Melm [id number] Joseline Melm 01/17/2024 2 UMR [id number] Joseline Melm [id number] Joseline You 03/08/2024 1 [place] [id number] Joseline You [id number] Joseline You 03/08/2024 2 [id number] Joseline You [id number] Joseline You 05/02/2024 2 UMR [id number] Joseline You [id number] Joseline You 05/02/2024 2 [employer] [employer] [place] 33A Joseline You [id number] Joseline You Notes Date Note Type Note [...] the injection. Holly Tolentino MD [address] [place] [address], [phone], [facility] 11/30/2023 23:18:40 03/08/2024 text/html The patient is [...] of motion.SKK Holly Tolentino MD [address] [place] [address], [address], [facility] 03/11/2024 23:15:33 OBGyn Episode No OBEpisode recorded.
[2024-07-28 03:19] LABS: Calprotectin, Stool 6 mcg/g
== END 2024-07-23 08:56 | disposition home or self-care (01) ==
PROVIDERS: PCP Internal Medicine; Visit Provider Nurse Practitioner
DX: R19.7 Diarrhea, unspecified (principal); K58.0 Irritable bowel syndrome with diarrhea; R10.9 Unspecified abdominal pain; K92.1 Melena
CPT/HCPCS: 83993

== ENCOUNTER 2024-11-02 00:27 | Day surgery (SDC) | payer BC, OTHER, SELFPAY ==
[2024-10-17 11:20] VITALS: BMI 24.9
--- OUTSIDE RECORDS SUMMARY | 2024-11-02 00:30 | XMS_ITS | Data Portability ---
Author Organization [facility], [address] [place] [address] [place]rology ([place]) Address [address] [address] Care Team Providers Care Bottom Stop Attacher Name Role Phone TEE ARIAS Primary Care Provider [phone] Assessment Encounter Date Assessment Date Assessment LastModified [...] Modified Time Details Appointments Procedure 10.PRO 2024 01:20P M Dr. Holly Tolentino Not available Not available Not available Lab None recorded. Referral None recorded. Procedures None recorded. Surgeries None recorded. Imaging None recorded. Medication Orders Botox 100 unit injection 2024 025 [email or web address] [facility], [facility] [place], [address], 10/31/2024 17:07:48 Botox 100 unit injection 2024 025 [facility] [address] [place], [address], 08/01/2024 14:25:41 Botox 100 unit injection 2024 025 [email or web address] [facility] [address] [place], [address], 05/02/2024 15:50:23 Botox 100 unit injection 2023 024 [email or web address] [facility], [address] [place], [address], 01/17/2024 12:03:15 Patient TargetsNo targets recorded. Patient InstructionsNo instructions recorded. Reason for Referral None Reported. 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 Procedures Surgical History Date Name Laterality Status Provider Name and Address Organization Details Recorded Time 5 SC Botox Procedure completed Holly Tolentino MD [address] [place] [address], [phone], [facility] 10/31/2024 17:08:05 5 SC Botox Procedure completed Holly Tolentino MD [address] [place] [address], [phone], [facility] 08/01/2024 14:25:06 5 SC Botox Procedure completed Holly Tolentino MD [address] [place] [address], [address], [facility] 05/02/2024 15:49:46 4 SC Botox Procedure completed Holly Tolentino MD [address] [place] [address], [phone], [facility] 01/17/2024 12:11:54 4 SC Procedure completed Holly Tolentino MD [address] [place] [address], [phone], [facility] 11/03/2023 16:20:51 4 SC Procedure completed Holly Tolentino MD [address] [place] [address], [address], [facility] 09/01/2023 16:24:43 Imaging Results None recorded. Procedure [...] Date Recorded Body weight Heart rate Systolic And Diastolic Provider Name and Address Organization Details Last Updated DateTime 03/08/2024 65267.54 g 58 /min 116/82 mm[Hg] Alexandra Dobbinssalomón Ortiz [facility] 03/08/2024 16:04:35 Social History None recorded. Functional Status None recorded. Mental Status None recorded. Family History Nothing Reported. Medical History No medical history recorded. Gynecological HistoryNo gynecological history recorded. Obstetrics History GPAL:G 0 P 0 0 0 0 Past Encounters Encounter ID Performer Location Encounter Start Date Encounter Closed Date Diagnosis/Indication Diagnosis SNOMED-CT Code Diagnosis ICD10 Code Diagnosis Note [id number] Holly Tolentino MD [facility] ([place] [address] 09/01/2023 15:57:21 09/06/2023 14:16:25 Neck pain 19649530 M54.2 Spasm 89749985 R25.2 [id number] Holly Tolentino MD [facility] [place] [address] [place] [address] 11/03/2023 15:50:42 11/07/2023 09:36:33 Neck pain 75140436 M54.2 Spasm 97268829 R25.2 [id number] Holly Tolentino MD [address] [place] [address] [place] ([place]) [address] [place] [address] [address] 01/17/2024 10:59:25 01/17/2024 15:57:25 Spasmodic torticollis 95202871 G24.3 [id number] Holly Tolentino MD [facility] [place] [place]) [address] [place] [address] 03/08/2024 15:58:53 03/11/2024 04:48:32 Spasmodic torticollis 86578602 G24.3 [id number] Holly Tolentino MD [address] [place] [address] [place]) [address] [place] [address],[address] [address] 05/02/2024 15:06:18 05/02/2024 17:13:07 Spasmodic torticollis 26640577 G24.3 [id number] Holly Tolentino MD [address] [place] [address] [place]) [address] [place] [address],[address] [address] 08/01/2024 13:18:44 08/01/2024 16:44:27 Spasmodic torticollis 48250316 G24.3 [id number] Holly Tolentino MD [address] [facility] ([place]) [address] [address] 10/31/2024 13:39:44 10/31/2024 17:41:12 Spasmodic torticollis 35155011 G24.3 Health Concerns Section Related Observation LastModified by Organization Detai ls LastModified Time None Recorded Concern Status LastModified by Organization Details LastModified Time None Recorded Advance Directives Directive None Recorded Payers Insurance Date Sequence Insurance Name Policy Number Policy Guy Covered Member ID Guy Member ID Guarantor Name 11/01/2024 2 [employer] [id number] Joseline You [id number] Joseline Gradym 11/01/2024 1 [place] [id number] Joseline You [id number] Joseline Gradym 10/31/2024 2 [place] [id number] Joseline You [id number] Joseline You Notes Date Note Type Note Provider Name and Address Organization Details Recorded Time 03/08/2024 text/html The patient is a 38 [...] that she has much better range of motion.MARIELA Tolentino MD [address] [place], [address], [facility] 03/11/2024 23:15:33 OBGyn Episode No OBEpisode recorded.
--- OUTSIDE RECORDS SUMMARY | 2024-11-02 00:30 | XMS_ITS | Data Portability ---
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 Not available 06/07/2024 12:40:15 Plan of Treatment Reminders Order Date Submit Date Provider Last Modified By Organization Details Last Modified Time Details Appointments None recorded. Lab None recorded. Referral None recorded. Procedures None recorded. Surgeries None recorded. Imaging MAMMO, screening, digital, bilateral 2024 025 [facility], [address], [place], [address], 04:01:38 MAMMO, diagnostic, digital, bilateral - bilateral breast lumps felt in outer quadrants, most prominent on left breast (around 2 oclock) 2022 023 [facility], [address], [place], [address], 4 10:08:16 US, breast, bilateral 2022 023 [facility] , [address], [place], [address], 4 05:01:00 Medication Orders norethindro ne (contracept clarissa) 0.35 mg tablet 2024 025 [facility], [address], [place], [address], 5 10:01:33 norethindro ne (contracept clarissa) 0.35 mg tablet 2022 023 [facility], [address], [place], [address], 3 17:34:23 Jencycla 0.35 mg tablet 2021 022 [facility], [address], [place], [address], 2 10:09:57 Debra 0.35 mg tablet 2021 022 [facility], [address], [place], [address], 2 11:22:37 Patient TargetsNo targets recorded. Patient InstructionsNo instructions recorded. Reason for Referral None Reported. Results Created Date Observation Date Name Description Value Unit Range Abnormal Flag Note LastModifiedBy Organization Detail LastModifiedTime 08/06/19 21 08/05/2020 pap, IG Pap test SEE RESULT S BELOW CASE REPOR T: Cytol ogy Gynec ologi trace Repor t Case: [id number] Autho ernesto manley Provi tonja: Juliana Anderson, FADI Colle cted: 08/05 1617 Order ing Locat ion: [place] [facility] Recei sandie: 08/06 0522 First Scree n: Leidy Fajardo Speci men: Scree alberto Pap - Image d, Cervi x STATE MENT OF ADEQU ACY: Satis facto ry for evalu ation Trans forma tion zone compo nent prese nt FINAL DIAGN OSIS: Negat clarissa for Intra epith elial Lesio n or Malig michael Elect barney fry ava d by Leidy [...] Thinp rep Imagi ng Syste m. CLINI TRACE INFOR MATIO N: Menst rual Statu s: LMP (if appli cable ): Clini trace Histo ry/Pr eviou s Pap: Type of [...] ng do not corre late with physi trace and/o r histo rical findi ngs, furth er inves tigat ion is recom dian d, as clini deloris harrison nted. Not Available [facility] (Lab) [address], [place], [address], 08/06/2020 19:21:47 09/23/19 22 09/22/2021 IMAGE GUIDE D PAP AND HPV REGAR DLESS image guided Pap, HPV regardless of Pap result SEE RESULT S BELOW CASE REPOR T: Cytol ogy Gynec ologi trace Repor t Case: [id number] Autho [...] OSIS: Negat clarissa for Intra epith elial Shellie acevedo or Sharon rodriguez (NIL) . Jody [...] Thinp rep Imagi ng Syste m. CLINI TRACE INFOR MATIO N: Menst rual Statu s: LMP (if appli cable ): Clini trace Histo ry/Pr eviou s Pap: Type of Neopl rojas (if appli cable ): Signi fican t Clini trace Findi ngs: Other Histo ry: Hormo irineo [...] ng do not corre late with physi trace and/o r histo rical findi ngs, furth er inves tigat ion is recom dian d, as clini deloris warra nted. Not Available [facility] (Lab) [address], [place], [address], 09/26/2021 07:34:25 03/08/20 23 03/08/2023 IMAGE GUIDE D PAP AND HPV REGAR DLESS image guided Pap, HPV regardless of Pap result SEE RESULT S BELOW CASE REPOR T: Cytol ogy Gynec ologi trace Repor t Case: [id number] Autho ritiffany g Provi tonja: Alanis Mckeon, VESTA Coles [...] Negat clarissa for Intra epith elial Lesheike n or Sharon rodriguez (NIL) . Elect [...] Thinp rep Imagi ng Syste m. CLINI TRACE INFOR MATIO N: Menst rual Statu s: LMP (if appli cable ): Clini trace Histo ry/Pr eviou s Pap: Type of Neopl rojas (if appli cable ): Signi fican t Clini trace Findi ngs: Other Histo ry: Hormo irineo [...] ng do not corre late with physi trace and/o r histo rical findi ngs, furth er inves tigat ion is recom dian d, as clini deloris christy nted. Not Available [facility] (Lab) [address], [place], [address], 03/14/2023 12:27:33 04/21/19 24 04/20/2023 MAMMO , diagn ostic , digit al, bilat eral No observ ation record ed. [facility] [address], [place], [address], 04/25/2023 11:52:57 Result Notes None recorded. Problems Name Problem SNOMED Code Status Onset Date Resolution Date Notes Provider Name and Address Organization Details Recorded Time Educatio n Completed 201608/05/2020 Encounte r for other general counseli ng and advice on contrace ption;Re corded Elsewher e: No Locat ion: [facility] S ource: EHR Order Desk Clerk zhen: N Estelita ce ID: 0001 Bahman lable Time: 09:45:00 AM Soo encarnacion [facility] 13:57:[address] Concept Completed 201608/05/2020 Encntr for general adult medical exam w/o abnormal findings ;Recorde d Elsewher e: No Locat ion: [facility] S ource: EHR Order Desk Clerk zhen: N Practi ce ID: 0001 Bahman lable Time: 09:45:00 AM Soo encarnacion [facility] 13:58:21 Pregnanc y detectio n examinat ion Completed 201708/05/2020 Encounte r for pregnanc y test, result positive ;Practic e ID: 0001 Soo encarnacion, [facility] 13:58:11 Hemorrha gic complica tion of pregnanc y 381199941 Completed 201708/05/2020 Other hemorrha ge in early pregnanc y;Practi ce ID: 0001 Soo encarnacion, [facility] 13:58:06 Uterine size for dates discrepa ncy Completed 201708/05/2020 Uterine size-alberto e discrepa ncy, first trimeste r;Practi ce ID: 0001 Soo encarnacion, [facility] 13:58:24 Gestatio n less than 9 weeks 504208353 Completed 201708/05/2020 Less than 8 weeks gestatio n of pregnanc y;Practi ce ID: 0001 Soo encarnacion, [facility] 13:57:42 Pregnanc y, childbir th and puerperi um finding Completed 201708/05/2020 Encntr for suprvsn of normal first preg, first trimeste r;Practi ce ID: 0001 Soo encarnacion, [facility] 13:58:14 Rubella screenin g status 589376271 Completed 201708/05/2020 Encounte r for antenata l screenin g, unspecif ied;Prem rded Elsewher e: No Locat ion: [facility]rett [facility]er[facility] S ource: EHR Order Desk Clerk zhen: N Practi ce ID: 0001 Bahman lable Time: 10:30:00 AM Soo encarnacion, [facility] 13:58:17 Pregnanc y, childbir th and puerperi um finding Completed 201708/05/2020 Encntr for suprvsn of normal first preg, second trimeste r;Record ed Elsewher e: No Locat ion: [facility] S ource: EHR Order Desk Clerk zhen: N Practi ce ID: 0001 Bahman lable Time: 10:30:00 AM Soo Adam alysha, [facility] 13:58:15 Gestatio n period, 15 weeks 6059950 Completed 201708/05/2020 15 weeks gestatio n of pregnanc y;Practi ce ID: 0001 Soo Adam alysha, [facility] 13:57:43 Gestatio n period, 16 weeks 17188387 Completed 201708/05/2020 16 weeks gestatio n of pregnanc y;Practi ce ID: 0001 Soo Jair alysha, [facility] 13:57:45 Clinical finding Completed 201708/05/2020 Maternal care for oth abnlt of cervix, second trimeste r;Practi ce ID: 0001 Soo Adam alysha, [facility] 13:57:40 Antenata l screenin g for malforma tion Completed 201708/05/2020 Encounte r for antenata l screenin g for malforma tions;Pr actice ID: 0001 Soo [place] alysha, [facility] 13:57:29 Gestatio n period, 19 weeks 57197068 Completed 201708/05/2020 19 weeks gestatio n of pregnanc y;Practi ce ID: 0001 Soo Jair encarnacion, [facility] 13:57:46 Normal pregnanc y in multigra britta [id number] 4106 Completed 201708/05/2020 Encounte r for suprvsn of normal pregnanc y, second trimeste r;Practi ce ID: 0001 Soo encarnacion, [facility] 13:58:10 Antenata l screenin g Completed 201708/05/2020 Encounte r for other antenata l screenin g follow-u p;Practi ce ID: 0001 Soo encarnacion, [facility] 13:57:27 Backache 005787265 Completed 201708/05/2020 Dorsalgi a, unspecif ied;Prac heather ID: 0001 Soo encarnacion, [facility] 13:57:30 Gestatio n period, 21 weeks 45093401 Completed 201708/05/2020 21 weeks gestatio n of pregnanc y;Practi ce ID: 0001 Soo encarnacion, [facility] 13:57:48 Gestatio n period, 23 weeks 61664013 Completed 201808/05/2020 23 weeks gestatio n of pregnanc y;Practi ce ID: 0001 Soo encarnacion, [facility] 13:57:49 Gestatio n period, 25 weeks 80426672 Completed 201808/05/2020 25 weeks gestatio n of pregnanc y;Practi ce ID: 0001 Soo encarnacion, [facility] 13:57:51 Pregnanc y, childbir th and puerperi um finding Completed 201808/05/2020 Encntr for suprvsn of normal first pregnanc y, unsp trimeste r;Practi ce ID: 0001 Soo encarnacion, [facility] 13:58:13 Gestatio nal diabetes mellitus 96651246 Completed 201808/05/2020 Gestatio nal diabetes mellitus in pregnanc y, diet controll ed;Pract ice ID: 0001 Soo encarnacion, [facility] 13:58:04 Gestatio n period, 29 weeks 74392320 Completed 201808/05/2020 29 weeks gestatio n of pregnanc y;Practi ce ID: 0001 Soo encarnacion, [facility] 13:57:53 Diet educatio n Completed 201808/05/2020 Dietary counseli ng and surveill ance;Pra ctice ID: 0001 Soo encarnacion, [facility] 13:57:34 Dietary manageme nt surveill ance Completed 201808/05/2020 Dietary counseli ng and surveill ance;Pra ctice ID: 0001 Soo encarnacion, [facility] 13:57:37 Gestatio n period, 32 weeks 2159839 Completed 201808/05/2020 32 weeks gestatio n of pregnanc y;Practi ce ID: 0001 Soo encarnacion, [facility] 13:57:54 Gestatio n period, 33 weeks 15637619 Completed 201808/05/2020 33 weeks gestatio n of pregnanc y;Practi ce ID: 0001 Soo encarnacion, [facility] 13:57:55 Gestatio n period, 34 weeks 52998835 Completed 201808/05/2020 34 weeks gestatio n of pregnanc y;Practi ce ID: 0001 Soo encarnacion, [facility] 13:57:57 Gestatio n period, 35 weeks 59417423 Completed 201808/05/2020 35 weeks gestatio n of pregnanc y;Practi ce ID: 0001 Soo encarnacion, [facility] 13:57:58 Gestatio n period, 36 weeks 09372566 Completed 201808/05/2020 36 weeks gestatio n of pregnanc y;Practi ce ID: 0001 Soo encarnacion, [facility] 13:57:59 Gestatio n period, 37 weeks 99793441 Completed 201808/05/2020 37 weeks gestatio n of pregnanc y;Practi ce ID: 0001 Soo encarnacion, [facility] 13:58:01 Gestatio n period, 38 weeks 50401275 Completed 201808/05/2020 38 weeks gestatio n of pregnanc y;Practi ce ID: 0001 Soo encarnacion, [facility] 13:58:02 Gestatio nal diabetes mellitus in [facility] [id number] 031066 Completed 201808/05/2020 Gestatnl diab in [facility] , ctrl by oral hypoglyc emic drugs;Pr actice ID: 0001 Soo encarnacion, [facility] 13:58:05 Fourth degree perineal lacerati on 939161161 Completed 201808/05/2020 Fourth degree perineal lacerati on during delivery ;Practic e ID: 0001 Soo encarnacion, [facility] 13:57:41 Single live from singleto n pregnanc y 706081786 Completed 201808/05/2020 Single live ;Pr actice ID: 0001 Soo encarnacion, [facility] 13:58:18 Gestatio n period, 39 weeks 59191404 Completed 201808/05/2020 39 weeks gestatio n of pregnanc y;Practi ce ID: 0001 Soo Adam [facility] 13:58:03 Uses combined oral contrace ption 349849378 Completed 201808/05/2020 Encounte r for initial prescrip tion of contrace ptive pills;Pr actice ID: 0001 Soo Adam [facility] 13:57:32 Lochia finding Completed 201808/05/2020 Encounte r for routine postpart um follow-u p;Practi ce ID: 0001 Soo Adam [facility] 13:58:09 Past pregnanc y history of gestatio nal diabetes mellitus 541810924 Completed 201808/05/2020 Personal history of gestatio nal diabetes ;Practic e ID: 0001 Soosarah Adam [facility] 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 13:58:22 Problem Notes None recorded. Procedures Surgical History Date Name Laterality Status Provider Name and Address Organization Details Recorded Time 04/20/19 24 Date of Last Mammogram completed [facility] 06/07/2024 12:45:34 03/08/20 23 Date of Last Pap Smear completed [facility] 06/07/2024 12:44:45 04/18/19 13 tonsillectomy completed [facility] 08/05/2020 14:53:41 Imaging Results None recorded. Procedure Notes None [...] Prescrib ed Elsewher e: No Locat ion: [facility] odify By: [email or web address] Encount er DateTime : 06/23/19 08:30:00 AM [...] Not Available Not Available Not Avai lable [place] 5 mg-325 mg tablet take 1 tablet by oral route every 4 hours as needed for pain 08/05 completed Prescrib ed Elsewher e: No Locat ion: [facility] odify By: haim tubbs DateTime : 09/02/19 [...] by oral route 3 times every day 12/07/ 2017 04/20 /2021 completed Prescrib ed Elsewher e: Yes Loca tion: Jarrett frederick [facility] odify By: grecia Godinezte r DateTime : 03/24/20 17 09:45:00 AM Not Available Not Available Not Available duloxetin e 20 mg capsule,d elayed release take 1 capsule by oral route 2 times every day 02/12 completed Prescrib ed Elsewher e: Yes Loca tion: Jarrett frederick [facility] odify By: [email or web address] Herbertte r DateTime : 03/24/20 17 09:45:00 AM Not Available Not Available Not Available duloxetin e 30 mg capsule,d elayed release take 1 capsule by oral route every day 08/05 completed Prescrib ed Elsewher e: Yes Loca tion: Jarrett frederick [facility] odify By: Encount er DateTime : 09/19/19 19 08:30:00 AM Not Available Not Available Not Available duloxetin e 60 mg capsule,d elayed release active Not Available Not Available Not Available Fora Z11-O46-M 10-D20 strips-la ncets 30 gauge combo pack checking BS QID fasting and 1 hr after each meal 09/18 completed Prescrib ed Elsewher e: No Locat ion: [facility]er[facility] odify By: Encount er DateTime : 06/12/19 19 09:13:58 AM Not Available Not Available Not Available 28 mg-800 mcg tablet 08/05 completed Prescrib ed Elsewher e: Yes Loca tion: Jarrett frederick [facility] odify By: [email or web address] Encount er DateTime : 04/14/20 18 04:00:00 PM Not Available Not Available Not Available Isibloom 0.15 mg-0.03 mg tablet TAKE ONE TABLET BY MOUTH DAILY 09/22 completed Not Available Not Available Not Available Vitals Date Recorded Body height Body mass index (BMI) Body weight Systolic And Diastolic Provider Name and Address Organization Details Last Updated DateTime 06/11/2024 162.56 cm 26.6 kg/m2 45974.1 g 120/84 mm[Hg] Nu Milligan [facility] 06/11/2024 09:32:35 Date Recorded Body height Body mass index (BMI) Body weight Systolic And Diastolic Provider Name and Address Organization Details Last Updated DateTime 08/14/2020 172.72 cm 24 kg/m2 38192.59 g 120/80 mm[Hg] Abigail Dey [facility] 08/14/2020 16:17:59 Date Recorded Body height Body mass index (BMI) Body weight Systolic And Diastolic Provider Name and Address Organization Details Last Updated DateTime 09/22/2021 162.56 cm 26 kg/m2 91573.88 g 122/89 mm[Hg] Lillian Esther [facility] 09/22/2021 10:25:52 Date Recorded Body height Body mass index (BMI) Body weight Systolic And Diastolic Provider Name and Address Organization Details Last Updated DateTime 12/23/2021 162.56 cm 25.8 kg/m2 80713.29 g 122/81 mm[Hg] Quin Gallo [facility] 12/23/2021 09:49:58 Date Recorded Body weight Systolic And Diastolic Provider Name and Address Organization Details Last Updated DateTime 03/08/2023 35901.75 g 131/80 mm[Hg] Lillianag Santana [facility] 03/08/2023 17:11:49 Social History Question Answer Notes LastModified by Organizat ion Details LastModified Time Tobacco Smoking Status Former Smoker Lillian Santana [facility] 03/08/2023 17:16:42 Are You Blind Or Do You Have [...] lastcigarette Information not available 03/08/2023 Do You Have Difficulty Walking Or Climbing Stairs? No Information not available 09/22/2021 Sex: Unknown Functional Status Question Answer Note LastModified by Organizat ion Details LastModified Time Do you use any illicit or recreational drugs? Yes Information not available 03/08/2023 What is your level of alcohol consumption? Occasional Information not available 09/22/2021 Are you able to walk? YESWOREST Information not available 09/22/2021 Are you able to care for yourself? Yes Information n ot available 09/22/2021 Do you have difficulty dressing or bathing? No Information not available 09/22/2021 What is your exercise level? Occasional Information not available 09/22/2021 Mental Status None recorded. Family History Relationship Description Onset Age of this Age Resolved Age Notes LastModified by Organization Details LastModified Time Paternal Grandfather Carcinoma of prostate [email or web address] Not available 2020 14:52:54 Paternal Grandfather Malignant tumor of colon [email or web address] Not available 2020 14:53:07 Paternal Uncle Malignant neoplasm of lung [email or web address] Not available 2020 14:53:15 Medical History Condition [...] SNOMED-CT Code Diagnosis ICD10 Code Diagnosis Note [id number] Juliana Rodrigocr [facility] [address] [address] 08/05/2020 15:59:19 08/05/2020 17:36:46 Gynecologic examination 66641105 Z01.419 Take Calcium with Vitamin D 1200mg [...] paper copy of today's plan if desired. [id number] Garrison Hamilton MD [place] [address] [address] 08/14/2020 15:47:43 08/14/2020 22:29:00 Finding of color of vaginal discharge 611739551 N89.8 There does not appear to be a fistula between the rectum and the vagina. we agreed to a trial of tampon use for 1 week. She will examine the tampon for leakage of stool on the tampon. She will contact us if this persists and we will make arrangemen ts for her to have her evaluation for rectovagin al fistula. [id number] ASHANTI Duran [facility] [address] [address] 09/22/2021 10:02:22 09/23/2021 17:27:56 Contraception care management 861184313 Z30.9 Gynecologi c examination 49678242 Z01.419 Z11.51 Take Calcium with Vitamin D [...] cancerRTC in 3 months for med check [id number] ASHANTI Duran [place] [address] [address] 12/23/2021 09:28:01 12/23/2021 10:14:39 Contraception care management 467139234 Z30.9 Patient is here today for a [...] counseling and review of plan of care. [id number] ASHANTI Duran [place] [address] [address] 03/08/2023 17:00:56 03/09/2023 09:50:06 Gynecologic examination 18351386 Z01.419 Z11.51 WWEBC - POPrefills sent x 12 monthsr/b/ a reviewedpa p updatedSTI testing declineddi [facility] w/ u/s orderedenc ouraged annual exam with [...] please call or respond to this email.Cristal dill was made aware of the patient portal and may obtain a paper copy of today's plan if desired. Breast lump 64621548 N63 .0 Contracept ion care management 453412822 Z30.9 [id number] Garrison Hamilton MD [place] [address] [address] 06/11/2024 09:23:09 06/11/2024 10:12:05 Gynecologic examination 09711082 Z01.419 Annual gynecologi trace exam performed. Patient will come back in [...] DEXA scan- n/a Pap smear- UTD (2022- WN), will repeat in 2025 per ASCCP guidelines laboratory evaluation - PCP STI testing - declined Contracept ion care management 830903807 Z30.9 Happy with BC pills. Risks/bene fits reviewed.R efills sent x one year. Screening mammography 24 147762 Z12.31 Health Concerns Section Related Observation LastModified by Organization Detai ls LastModified Time None Recorded Concern Status LastModified by Organization Details LastModified Time None Recorded Advance Directives Directive None Recorded Payers Insurance Date Sequence Insurance Name Policy Number Policy Guy Covered Member ID Guy Member ID Guarantor Name 06/11/2024 1 [facility] (PPO) [id number] Joseline Melm [id number] Joseline Melm 03/05/2023 2 [employer] (PPO) [id number] Andreas Melm [id number] Joseline Mel[place] 06/11/2024 1 [place] [id number] Joseline [place] [id number] Joseline [place] 06/11/2024 1 [place] [id number] Joseline [place] [id number] Joseline Mel[place] 06/08/2024 2 U[employer] [id number] Andreas D Mel[place] [id number] Joseline Mel[place] Notes Date Note Type Note Provider Name [...] stool or Flatus. Garrison Hamilton MD [address], [place], [address], [facility] 08/14/2020 17:58:10 09/22/2021 text/html Annual GYNReport [...] regular mammograms starting age 40 ASHANTI Duran [address], [place], [address], [facility] 09/22/2021 11:22:13 12/23/2021 text/html Patient here for med [facility] (tobacco smoker and migraine with aura hx)Doing well with POP, has noted some acneLight monthly spotting ASHANTI Duran [address], [place], [address], [facility] 12/23/2021 10:08:26 03/08/2023 text/html Annual GYNReport [...] regular mammograms starting age 40 ASHANTI Duran [address], [place], [address], [facility] 03/09/2023 09:42:51 06/11/2024 text/html Annual GYNReport [...] for BIRADS 3 in October 2023 at [facility] per pt. Denies breast concerns today. VU LÓPEZ NP [address], [place], [address], [place] [facility] 06/11/2024 10:03:54 OBGyn Episode Ob Episode Information Episode Created Date Number of Fetuses Patient Bloodtype Patient rh Status Prepregnancy Weight lbs Domestic Partner Domestic Partner Phone Father Name Mammography Supervisor Status 08/06/19 21 1 CLOSED Fetus Data [...]
[2024-11-02 07:53] VITALS: BP 126/87; PULSE 87; RESP 16; TEMP 36.7; O2SAT 96; BMI 24.3
--- NOTE | 2024-11-02 07:53 | P.PNAN_ITS ---
Anes - Initial Pre Proc Eval Procedure: Operation Date: 11/02/24 09:00 Proposed Procedures p Colonoscopy - Pranay Doe MD Date/Time: 11/02/24 07:53 Surgeon: Pranay Doe MD Pre Op Diagnosis: Diarrhea, unspecified, Fecal urgency, Melena, Patient Data Age: 38 Gender: F Height: 1.63 m Weight: 65.8 kg Allergies Allergy/AdvReac Type Severity Reaction Status Date / Time No Known Allergies Allergy Verified 11/02/24 08:02 Home Medications ?Medication ?Instructions ?Recorded ?Confirmed ?Type baclofen 10 mg tablet 10 mg PO DAILY 02/15/20 11/02/24 History duloxetine 20 mg capsule,delayed 60 mg PO DAILY 02/15/20 11/02/24 History release nortriptyline 10 mg capsule 10 mg PO BID 02/15/20 11/02/24 History dicyclomine 10 mg capsule 10 - 20 mg (1 - 2 x 10 mg) PO 08/10/22 10/17/24 Rx .every 6 hours PRN abdominal pain #120 caps ketorolac 10 mg tablet 10 mg PO Q6H PRN migraine headache 05/03/23 10/17/24 History colestipol 1 gram tablet 1 g PO BID #60 tabs 07/19/24 11/02/24 Rx Patient hx anesthesia problems: none Family hx anesthesia problems: none Results Review: All pre-operative results and documents have been reviewed as part of the pre- operative evaluation. [facility] Past Medical History Medical History Epigastric burning sensation Irritable bowel syndrome with diarrhea Fibromyalgia Colon cancer screening Non-specific colitis Tobacco consumption Bloating Irritable bowel syndrome Abdominal pain Anxiety Fibromyalgia Blood in stool Social History Social History Years smoked: 20 Smoking status: Former smoker Tobacco type: cigarettes and e-cigarettes/vaping Alcohol intake: current Drinks per week: 3 Substance use: current Substance use type: marijuana Other substance usage details: medical MJ (fibromyalgia & migraines) Last use: 1 day ago Do You Feel Safe in your Home?: Yes Lack of Transportation: No Lack of Food: Never True Current Housing: I Do Not Have Housing Concerned About Future Housing: No Difficulty Paying Gas/Electric Bills: No Difficulty Paying for Meds: No Currently Unemployed: YES Education: Associate Degree Difficulty w/ Childcare or Family Care: No Living arrangements: with family Occupation/Education: occupation Gender identity (if verbalized by the patient): Female Spiritual care concerns: No Anes - Eval Final PreProcedure Day of Procedure 11/02/24 07:53 Patient weight: normal Heart: regular rate and rhythm Lungs: clear to auscultation and normal air movement Airway: Mallampati scale class II Neurological: alert and oriented Last oral intake: >/= 8 hours ASA classification: II Emergent: no Anesthetic plan: proceed Anesthesia type and monitoring: general GIVS and standard monitoring Results Review: All pre-operative results and documents have been reviewed as part of the pre- operative evaluation. Informed Consent: The patient's anesthetic plan and its attendant risks and benefits were discussed with the patient/family/POA. Questions were solicited and answers provided to the satisfaction of the patient/family/POA.
[2024-11-02 08:10] LABS: BEDSIDEPREGUCG Negative (Negative)
[2024-11-02] MEDS: LACTATED RINGERS 1,000 ML 150 ML IV CONT (08:15)
--- NOTE | 2024-11-02 08:44 | PM.HPGS ---
History of Present Illness History of Present Illness Consent: Risks, benefits, and alternatives have been discussed and questions answered. Patient agrees to proceed with procedure. Chief complaint: Diarrhea, unspecified, Fecal urgency, Melena, Narrative: Joseline You is a 38 year old female had episode of urgency and diarrhea but resolved after using colestipol, colonocopy 2020 normal but bx showed mild colitis, treated briefly with budesonide. Review of Systems Review of Systems: All systems reviewed & are unremarkable except as noted in HPI and below PMFSH Past Medical History Medical History Epigastric burning sensation Irritable bowel syndrome with diarrhea Fibromyalgia Colon cancer screening Non-specific colitis Tobacco consumption Bloating Irritable bowel syndrome Abdominal pain Anxiety Fibromyalgia Blood in stool Social History Social History Years smoked: 20 Smoking status: Former smoker Tobacco type: cigarettes and e-cigarettes/vaping Alcohol intake: current Drinks per week: 3 Substance use: current Substance use type: marijuana Other substance usage details: medical MJ (fibromyalgia & migraines) Last use: 1 day ago Do You Feel Safe in your Home?: Yes Lack of Transportation: No Lack of Food: Never True Current Housing: I Do Not Have Housing Concerned About Future Housing: No Difficulty Paying Gas/Electric Bills: No Difficulty Paying for Meds: No Currently Unemployed: YES Education: Associate Degree Difficulty w/ Childcare or Family Care: No Living arrangements: with family Occupation/Education: occupation Gender identity (if verbalized by the patient): Female Spiritual care concerns: No Meds Home Medications and Allergies Home Medications ?Medication ?Instructions ?Recorded ?Confirmed ?Type baclofen 10 mg tablet 10 mg PO DAILY 02/15/20 11/02/24 History duloxetine 20 mg capsule,delayed 60 mg PO DAILY 02/15/20 11/02/24 History release nortriptyline 10 mg capsule 10 mg PO BID 02/15/20 11/02/24 History dicyclomine 10 mg capsule 10 - 20 mg (1 - 2 x 10 mg) PO 08/10/22 10/17/24 Rx .every 6 hours PRN abdominal pain #120 caps ketorolac 10 mg tablet 10 mg PO Q6H PRN migraine headache 01/16/24 07/02/25 History colestipol 1 gram tablet 1 g PO BID #60 tabs 07/19/24 11/02/24 Rx Allergies Allergy/AdvReac Type Severity Reaction Status Date / Time No Known Allergies Allergy Verified 11/02/24 08:02 Vital Signs Vital Signs - 24 hr 11/02/24 07:53 Temperature 98.0 F Pulse Rate 87 Respiratory Rate 16 Blood Pressure 126/87 Pulse Oximetry 96 Oxygen Delivery Room Air Exam Const: General: comfortable and no acute distress HENMT: Face/Nose/Sinus: Normal nares present Eyes: General: appearance normal, both eyes and all related structures Neck: Neck: no JVD Resp: Auscultation: clear to auscultation bilaterally Cardio: Rate: regular rate Rhythm: regular rhythm GI: Inspection: non-distended GI Palp: Yes Soft to palpation Skin: General skin exam: normal color Neuro: Speech: normal speech Extrem: General: normal to inspection Psych: Mental Status: mental status grossly normal Assessment and Plan Assessment and plan (1) Diarrhea: Code(s): R19.7 - Diarrhea, unspecified Status: Acute Assessment and Plan: colonoscopy
--- NOTE | 2024-11-02 08:57 | S_PTH ---
PATIENT: Joseline You LOC: [facility]#:[id number] AGE/SX: 38/F ROOM: RE11/02/[address]: Pranay Doe MD : 1985 BED: DIS: 11/02/2024 SPEC #: [id number] RECD: 11/02/24 10:10 STATUS: KARLA REDirk #: [id number] MAURA: 11/02/24 08:[address]: Pranay Doe DEPT: [facility] Surgical RECD BY: Emelia Moreno ENTERED: 11/02/24 10:10 SP TYPE: Surgical OTHR DR: Nabil Escalona MD Tissues: A - Colon Biopsy Procedures: Hematoxylin and Eosin Stain Gross and Microscopic Level 4
[2024-11-02 09:00] VITALS: BP 95/62; PULSE 93; RESP 20; O2SAT 100
[2024-11-02 09:10] VITALS: BP 104/68; PULSE 80; RESP 16; O2SAT 98
[2024-11-02 09:20] VITALS: BP 107/72; PULSE 79; RESP 13; O2SAT 100
== END 2024-11-02 09:34 | disposition home or self-care (01) ==
PROVIDERS: Anesthesiology; PCP Internal Medicine; Referring Provider Nurse Practitioner; Visit Provider Internal Medicine Gastroenterology
PROC: 0DJD8ZZ Inspection of Lower Intestinal Tract, Via Natural or Artificial Opening Endoscopic (ICD-10-PCS; CPT 45378; principal; 2024-11-02 09:00)
DX: K52.831 Collagenous colitis (principal); F12.90 Cannabis use, unspecified, uncomplicated; Z87.891 Personal history of nicotine dependence
CPT/HCPCS: 45380; 88305; J2003; J2704; J7120